=== PATIENT | male | born 1970 | race African-American/Black ===

== ENCOUNTER 2016-05-30 14:30 | Emergency (ER) | payer MEDICAID ==
[~2016-05-30] VITALS: Ht 185.4 cm; Wt 87.1 kg
[~2016-05-30 14:30] MED LIST: ALB2T; AMLO10TA2 PO; ATEN50TA PO; ENAL20TA70 PO; FLUT100M7; LEVE500T22; PHEN-250; RABE20TA5 PO; TRIA25CA PO
[2016-05-30] MEDS ORDERED: SODIUM CHLORIDE 0.9% 1,000 ML IV ONE (15:11)
[2016-05-30] MEDS ORDERED: DEXAMETHASONE SOD PHOS 4 MG/1ML SDV INJ IV ONE (15:15)
[2016-05-30] MEDS ORDERED: METOCLOPRAMIDE HCL 5MG/ml INJ 2ml VIAL IV ONE (15:15)
[2016-05-30] MEDS ORDERED: KETOROLAC TROMETH 30 MG/ML 1ML VIAL IV ONE (15:15)
[2016-05-30 15:47] LABS: DEFINITIVE VIEW TRANSMISSION; Hematocrit 41.8 % (41.0-53.0); Mean Corpuscular Hgb Conc. 31.1 g/dL (32.0-36.0); Mean Corpuscular Volume 77.1 fL (80.0-100.0); Mean Platelet Volume 10.6 fL (7.4-10.4); Platelet Count (auto) 177 10^3/uL (140-450); Red Cell Distribution Width 17.1 % (11.6-16.0); SUSPECT VIEW TRANSMISSION; White Blood Cell 4.4 10^3/uL (4.4-10.8)
[2016-05-30 15:51] LABS: Metamyelocytes % 0; Myelocytes % 0; Promyelocytes % 0; Reactive Lymphocytes 0
[2016-05-30 15:55] LABS: BUN/Creatinine Ratio 13.2; Calcium 8.9 mg/dL (8.5-10.1); Magnesium 1.7 mg/dL (1.6-2.6); Potassium 3.5 mmol/L (3.5-5.1)
[2016-05-30 16:50] VITALS: BP 133/91
[2016-05-30 17:54] LABS: Giant Platelets Few; Hypochromia Slight; Large Platelets FEW; Platelet Estimate Adequa
== END 2016-05-30 17:49 | disposition home or self-care (01) ==
LOC: ER 14:39
DX: M10.9 Gout, unspecified (principal); M25.522 Pain in left elbow; M25.532 Pain in left wrist; J45.909 Unspecified asthma, uncomplicated; K21.9 Gastro-esophageal reflux disease without esophagitis
CPT/HCPCS: 29105; 36415; 80048; 83735; 84443; 85007; 85027; 96361; 96374; 96375; 99285; J1100; J1885; J2765; J7030

== ENCOUNTER 2016-10-09 11:26 | Emergency (ER) | payer MEDICAID ==
[~2016-10-09] VITALS: Ht 185.4 cm; Wt 86.6 kg
[2016-10-09 11:39] VITALS: BP 171/127
[2016-10-09] MEDS ORDERED: KETOROLAC TROMETH 60MG/2ML VIAL IM ONE (14:15)
== END 2016-10-09 14:19 | disposition home or self-care (01) ==
LOC: ER 11:28
DX: M25.561 Pain in right knee (principal); M10.9 Gout, unspecified; Z76.0 Encounter for issue of repeat prescription; J45.909 Unspecified asthma, uncomplicated; K21.9 Gastro-esophageal reflux disease without esophagitis; I10 Essential (primary) hypertension
CPT/HCPCS: 96372; 99283; J1885

== ENCOUNTER 2016-12-21 12:56 | Emergency (ER) | payer MEDICAID ==
[~2016-12-21] VITALS: Ht 185.4 cm; Wt 83.5 kg
[2016-12-21 13:14] VITALS: BP 135/104
[2016-12-21] MEDS ORDERED: COLCHICINE 0.6 MG CAP ONE (15:23)
[2016-12-21] MEDS ORDERED: KETOROLAC TROMETH 60MG/2ML VIAL IM ONE (15:30)
[2016-12-21] MEDS ORDERED: COLCHICINE 0.6 MG CAP PO ONE (15:30)
== END 2016-12-21 15:47 | disposition home or self-care (01) ==
LOC: ER 12:56
DX: M10.9 Gout, unspecified (principal); J45.909 Unspecified asthma, uncomplicated; M54.2 Cervicalgia; K21.9 Gastro-esophageal reflux disease without esophagitis; I10 Essential (primary) hypertension; Z79.899 Other long term (current) drug therapy
CPT/HCPCS: 96372; 99283; J1885

== ENCOUNTER 2017-01-13 10:55 | Emergency (ER) | payer MEDICAID ==
[~2017-01-13] VITALS: Ht 185.4 cm; Wt 83.9 kg
[2017-01-13 12:13] LABS: CONDITION Y; DEFINITIVE SEE PRINTOUT; Hemoglobin 13.7 g/dL (13.5-17.5); Mean Corpuscular Hemoglobin 26.2 pg (28.0-32.0); Mean Corpuscular Hgb Conc. 32.7 g/dL (32.0-36.0); Mean Corpuscular Volume 80.2 fL (80.0-100.0); Mean Platelet Volume 10.5 fL (7.4-10.4); Platelet Count (auto) 139 10^3/uL (140-450); Red Cell Distribution Width 18.5 % (11.6-16.0); SUSPECT SEE PRINTOUT; White Blood Cell 6.9 10^3/uL (4.4-10.8)
[2017-01-13 12:33] LABS: Albumin 3.9 g/dL (3.4-5.0); BUN/Creatinine Ratio 11.7; Calcium 9.8 mg/dL (8.5-10.1); Uric Acid 8.9 mg/dL (3.5-7.2)
[2017-01-13 12:43] LABS: Metamyelocytes % 0; Myelocytes % 0; Promyelocytes % 0; Reactive Lymphocytes 0
[2017-01-13 12:53] VITALS: BP 133/98
[2017-01-13 13:04] LABS: Giant Platelets Few; Hypochromia Slight
[2017-01-13 13:05] LABS: Large Platelets FEW; Platelet Estimate Decrea
[2017-01-13] MEDS ORDERED: KETOROLAC TROMETH 60MG/2ML VIAL IM ONE (13:45)
[2017-01-13] MEDS ORDERED: methylPREDNISolone SOD SUCC 125 MG/2 ML VL IM ONE (13:45)
== END 2017-01-13 14:05 | disposition home or self-care (01) ==
LOC: ER 10:55
DX: M10.9 Gout, unspecified (principal); J45.909 Unspecified asthma, uncomplicated; K21.9 Gastro-esophageal reflux disease without esophagitis; I10 Essential (primary) hypertension; Z79.899 Other long term (current) drug therapy
CPT/HCPCS: 36415; 80053; 84550; 85007; 85027; 96372; 99284; J1885; J2930

== ENCOUNTER 2017-08-07 10:01 | Emergency (ER) | payer MEDICAID ==
[~2017-08-07] VITALS: Ht 185.4 cm; Wt 85.7 kg
[2017-08-07 10:08] VITALS: BP 138/89
[2017-08-07] MEDS ORDERED: KETOROLAC TROMETH 60MG/2ML VIAL IM ONE (10:45)
== END 2017-08-07 11:54 | disposition home or self-care (01) ==
LOC: ER 10:01
DX: M10.9 Gout, unspecified (principal); I10 Essential (primary) hypertension; J45.909 Unspecified asthma, uncomplicated; K21.9 Gastro-esophageal reflux disease without esophagitis; M25.561 Pain in right knee; F10.10 Alcohol abuse, uncomplicated
CPT/HCPCS: 96372; 99283; J1885

== ENCOUNTER 2017-08-27 15:03 | Emergency (ER) | payer MEDICAID ==
[~2017-08-27] VITALS: Ht 185.4 cm; Wt 83.9 kg
[2017-08-27 17:00] VITALS: BP 109/70
[2017-08-27] MEDS ORDERED: methylPREDNISolone SOD SUCC 125 MG/2 ML VL IM ONE (17:30)
[2017-08-27] MEDS ORDERED: KETOROLAC TROMETH 60MG/2ML VIAL IM ONE (17:30)
== END 2017-08-27 18:15 | disposition home or self-care (01) ==
LOC: ER 15:21
DX: M10.9 Gout, unspecified (principal); J45.909 Unspecified asthma, uncomplicated; K21.9 Gastro-esophageal reflux disease without esophagitis; I10 Essential (primary) hypertension
CPT/HCPCS: 96372; 99284; J1885; J2930

== ENCOUNTER 2017-11-20 18:10 | Emergency (ER) | payer MEDICAID ==
[~2017-11-20] VITALS: Ht 185.4 cm; Wt 88.5 kg
[2017-11-20 18:21] VITALS: BP 114/77
[2017-11-20] MEDS ORDERED: KETOROLAC TROMETH 60MG/2ML VIAL IM ONE (20:15)
== END 2017-11-20 21:12 | disposition home or self-care (01) ==
LOC: ER 18:10
DX: M25.522 Pain in left elbow (principal); M10.9 Gout, unspecified; K21.9 Gastro-esophageal reflux disease without esophagitis; I10 Essential (primary) hypertension; J45.909 Unspecified asthma, uncomplicated; Z79.899 Other long term (current) drug therapy
CPT/HCPCS: 96372; 99283; J1885

== ENCOUNTER 2017-11-22 19:13 | Emergency (ER) | payer MEDICAID ==
[~2017-11-22] VITALS: Ht 185.4 cm; Wt 81.6 kg
[2017-11-22 20:04] LABS: Basophils # (auto) 0 uL; Basophils % (auto) 0.5 % (0.0-2.0); Eosinophils # (auto) 0 uL; Hemoglobin 12.6 g/dL (13.5-17.5); Neutrophils # (auto) 3.2 uL
[2017-11-22 20:09] LABS: Eosinophils % (auto) 0.4 % (0.0-7.0); Hematocrit 38.3 % (41.0-53.0); Lymphocytes # (auto) 0.8 uL; Lymphocytes % (auto) 17.7 % (10.0-50.0); Mean Corpuscular Hemoglobin 24.8 pg (28.0-32.0); Mean Corpuscular Hgb Conc. 32.8 g/dL (32.0-36.0); Mean Corpuscular Volume 75.7 fL (80.0-100.0); Monocytes # (auto) 0.4 uL; Monocytes % (auto) 9.8 % (0.0-12.0); Neutrophils % (auto) 71.6 % (37.0-80.0); Nucleated Red Blood Cells % 0.6 %; Platelet Count (auto) 168 10^3/uL (140-450); Red Blood Cells 5.05 10^6/uL (4.5-5.90); Red Cell Distribution Width 17.5 % (11.8-14.3); White Blood Cell 4.5 10^3/uL (4.4-10.8)
[2017-11-22 20:10] VITALS: BP 141/52
[2017-11-22] MEDS ORDERED: LEVETIRACETAM INJ 500 MG in D5W 5% 100 ML IV ONE (20:15)
[2017-11-22 20:37] LABS: Albumin 3.7 g/dL (3.4-5.0); BUN/Creatinine Ratio 19.4; Bilirubin, Total 0.3 mg/dL (0.2-1.0); Calcium 8.6 mg/dL (8.5-10.1); Magnesium 2.3 mg/dL (1.6-2.6); Potassium 3.4 mmol/L (3.5-5.1); Total Protein 8.7 g/dL (6.4-8.2)
[2017-11-22 20:44] LABS: Blood Alcohol 319.7 mg/dL (0-5)
[2017-11-22] MEDS ORDERED: INDOMETHACIN 25 MG CAP PO ONE (21:15)
== END 2017-11-22 22:13 | disposition home or self-care (01) ==
LOC: EDBD 19:13 → ER 19:19
DX: R56.9 Unspecified convulsions (principal); F10.129 Alcohol abuse with intoxication, unspecified; J45.909 Unspecified asthma, uncomplicated; K21.9 Gastro-esophageal reflux disease without esophagitis; M10.9 Gout, unspecified; E78.5 Hyperlipidemia, unspecified; I10 Essential (primary) hypertension; Z79.899 Other long term (current) drug therapy
CPT/HCPCS: 36415; 70450; 80053; 80164; 80320; 83735; 84550; 85025; 94761; 96365; 99285; J1953; J7060

== ENCOUNTER 2017-12-28 13:04 | Emergency (ER) | payer MEDICAID ==
[~2017-12-28] VITALS: Ht 185.4 cm; Wt 83.9 kg
[2017-12-28 14:13] LABS: Lymphocytes # (auto) 1.1 uL; Monocytes # (auto) 0.6 uL; Neutrophils # (auto) 2.1 uL; Red Blood Cells 5.01 10^6/uL (4.5-5.90); White Blood Cell 3.9 10^3/uL (4.4-10.8)
[2017-12-28 14:15] LABS: Basophils # (auto) 0 uL; Basophils % (auto) 0.9 % (0.0-2.0); Eosinophils # (auto) 0.1 uL; Eosinophils % (auto) 1.5 % (0.0-7.0); Hemoglobin 12.8 g/dL (13.5-17.5); Lymphocytes % (auto) 28.2 % (10.0-50.0); Mean Corpuscular Hemoglobin 25.6 pg (28.0-32.0); Mean Corpuscular Hgb Conc. 32.8 g/dL (32.0-36.0); Monocytes % (auto) 16.2 % (0.0-12.0); Neutrophils % (auto) 53.2 % (37.0-80.0); Nucleated Red Blood Cells % 0.5 %; Platelet Count (auto) 140 10^3/uL (140-450); Red Cell Distribution Width 17.2 % (11.8-14.3)
[2017-12-28 14:26] LABS: Albumin 3.8 g/dL (3.4-5.0); BUN/Creatinine Ratio 16.8; Calcium 8.7 mg/dL (8.5-10.1); Potassium 3.7 mmol/L (3.5-5.1)
[2017-12-28 14:29] LABS: Bilirubin, Total 0.6 mg/dL (0.2-1.0); Total Protein 7.8 g/dL (6.4-8.2)
[2017-12-28 15:15] LABS: Urine Bacteria NONE SEEN /hpf (None Seen); Urine Blood 1+ /uL (Negative); Urine Mucus FEW (None Seen); Urine Specific Gravity 1.026 (1.001-1.035); Urine WBC 2 /hpf (0 - 3)
[2017-12-28 15:33] LABS: Alcohol, Urine < 3.0 mg/dL (0-5); Amphetamine Screen, Urine NEGATIVE (NEGATIVE); Barbiturate Scree,Urine NEGATIVE (NEGATIVE); Benzodiazephine Screen, Urine NEGATIVE (NEGATIVE); Cannabinoid Screen, Urine POSITIVE (NEGATIVE); Cocaine Screen, Urine NEGATIVE (NEGATIVE); Opiate Scree,Urine NEGATIVE (NEGATIVE); Phencyclidine Screen, Urine NEGATIVE (NEGATIVE)
[2017-12-28] MEDS ORDERED: LEVETIRACETAM 500 MG TAB PO ONE (15:45)
[2017-12-28 18:16] VITALS: BP 121/88
== END 2017-12-28 18:18 | disposition home or self-care (01) ==
LOC: ER 13:04
DX: G40.909 Epilepsy, unspecified, not intractable, without status epilepticus (principal); M54.9 Dorsalgia, unspecified; G89.29 Other chronic pain; F12.10 Cannabis abuse, uncomplicated; R74.8 Abnormal levels of other serum enzymes; J45.909 Unspecified asthma, uncomplicated; K21.9 Gastro-esophageal reflux disease without esophagitis; E78.5 Hyperlipidemia, unspecified; I10 Essential (primary) hypertension; E07.9 Disorder of thyroid, unspecified; M10.9 Gout, unspecified
CPT/HCPCS: 36415; 70450; 80053; 80164; 80185; 80307; 81001; 83036; 85025; 93005

== ENCOUNTER 2018-01-27 15:38 | Emergency (ER) | payer MEDICAID ==
[~2018-01-27] VITALS: Ht 185.4 cm; Wt 86.2 kg
[~2018-01-27 15:38] MED LIST changes: +AMLO10TA12 PO; -AMLO10TA2 PO
[2018-01-27 16:38] VITALS: BP 126/82
[2018-01-27] MEDS ORDERED: methylPREDNISolone SOD SUCC 125 MG/2 ML VL IM ONE (17:00)
[2018-01-27] MEDS ORDERED: KETOROLAC TROMETH 60MG/2ML VIAL IM ONE (17:00)
== END 2018-01-27 17:42 | disposition home or self-care (01) ==
LOC: ER 15:44
DX: M10.9 Gout, unspecified (principal); K21.9 Gastro-esophageal reflux disease without esophagitis; J45.909 Unspecified asthma, uncomplicated; E78.5 Hyperlipidemia, unspecified; I10 Essential (primary) hypertension
CPT/HCPCS: 96372; 99284; J1885; J2930

== ENCOUNTER 2018-04-08 23:48 | Inpatient (IN) | payer MEDICAID ==
[~2018-04-08] VITALS: Ht 185.4 cm; Wt 95.2 kg
[2018-04-09] MEDS ORDERED: MORPHINE SULFATE 4 MG/ML SYR/VIAL IV ONE (04:45)
[2018-04-09] MEDS ORDERED: SODIUM CHLORIDE 0.9% 1,000 ML IV ONE ×2 (04:45→09:45)
[2018-04-09] MEDS ORDERED: ONDANSETRON HCL 4 MG/2 ML VIAL IV ONE (04:45)
[2018-04-09 05:42] LABS: Lymphocytes # (auto) 1.3 uL; Mean Corpuscular Hemoglobin 24.6 pg (28.0-32.0)
[2018-04-09 05:44] LABS: Basophils # (auto) 0.1 uL; Basophils % (auto) 0.9 % (0.0-2.0); Eosinophils # (auto) 0 uL; Eosinophils % (auto) 0.6 % (0.0-7.0); Hematocrit 50.2 % (41.0-53.0); Hemoglobin 16.4 g/dL (13.5-17.5); Mean Corpuscular Hgb Conc. 32.7 g/dL (32.0-36.0); Mean Corpuscular Volume 75.2 fL (80.0-100.0); Monocytes # (auto) 0.9 uL; Monocytes % (auto) 10.2 % (0.0-12.0); Neutrophils # (auto) 6.4 uL; Neutrophils % (auto) 73.3 % (37.0-80.0); Nucleated Red Blood Cells % 0.3 %; Red Blood Cells 6.67 10^6/uL (4.5-5.90); Red Cell Distribution Width 16.3 % (11.8-14.3); White Blood Cell 8.7 10^3/uL (4.4-10.8)
[2018-04-09] MEDS ORDERED: cloNIDine HCL 0.1 MG TAB PO ONE (05:45)
[2018-04-09 05:53] LABS: Platelet Count (auto) 155 10^3/uL (140-450)
[2018-04-09 05:56] LABS: INR 0.94 (0.9-1.15); Partial Thromboplastin Time 29.4 sec (23.78-33.04); Prothrombin Time 10.1 sec (9.27-12.13)
[2018-04-09 05:58] LABS: Albumin 4.1 g/dL (3.4-5.0); Calcium 9.2 mg/dL (8.5-10.1); Magnesium 1.9 mg/dL (1.6-2.6); Potassium 3.9 mmol/L (3.5-5.1)
[2018-04-09 06:02] LABS: BUN/Creatinine Ratio 12.1; Bilirubin, Total 1.3 mg/dL (0.2-1.0); Total Protein 9.2 g/dL (6.4-8.2)
[2018-04-09] MEDS ORDERED: SODIUM CHLORIDE 0.9% 1,000 ML IVB ONE (07:32)
[2018-04-09] MEDS ORDERED: MORPHINE SULFATE 4 MG/ML SYR/VIAL IV PRN ×3 (07:45→10:00)
[2018-04-09] MEDS ORDERED: PROMETHAZINE HCL 25 MG/ML 1ML IV PRN (07:45)
[2018-04-09 08:24] LABS: Urine Bacteria NONE SEEN /hpf (None Seen); Urine Blood Negative /uL (Negative); Urine Hyaline Cast FEW /lpf (0 - 2); Urine Mucus FEW (None Seen); Urine Specific Gravity 1.025 (1.001-1.035); Urine WBC 1 /hpf (0 - 3)
[2018-04-09] MEDS ORDERED: LORazepam 2MG/ML-1ML VIAL IV PRN (09:45)
[2018-04-09] MEDS ORDERED: ACETAMINOPHEN 325 MG TAB PO PRN (10:00)
[2018-04-09] MEDS ORDERED: PANTOPRAZOLE 40 MG TAB PO SCH (10:00)
[2018-04-09] MEDS ORDERED: amLODIPine BESYLATE 5 MG TAB PO SCH (10:00)
[2018-04-09] MEDS ORDERED: NITROGLYCERIN 0.4 MG SL TAB SL PRN (10:00)
[2018-04-09] MEDS ORDERED: TRIAMTERENE/HCTZ 37.5/25 MG CAP/TAB PO SCH (10:00)
[2018-04-09] MEDS ORDERED: ONDANSETRON HCL 4 MG/2 ML VIAL IV PRN (10:00)
[2018-04-09] MEDS ORDERED: DOCUSATE SOD 100 MG CAP PO PRN (10:00)
[2018-04-09] MEDS ORDERED: LEVOTHYROXINE SODIUM 50 MCG TAB PO ONE (10:00)
[2018-04-09] MEDS ORDERED: MULTIPLE VITAMIN TAB PO SCH (10:00)
[2018-04-09] MEDS ORDERED: TEMAZEPAM 15 MG CAP PO PRN (10:00)
[2018-04-09 10:24] LABS: Alcohol, Urine < 3.0 mg/dL (0-5); Amphetamine Screen, Urine NEGATIVE (NEGATIVE); Barbiturate Scree,Urine NEGATIVE (NEGATIVE); Benzodiazephine Screen, Urine NEGATIVE (NEGATIVE); Cannabinoid Screen, Urine POSITIVE (NEGATIVE); Cocaine Screen, Urine NEGATIVE (NEGATIVE); Opiate Scree,Urine NEGATIVE (NEGATIVE); Phencyclidine Screen, Urine NEGATIVE (NEGATIVE)
[2018-04-09] MEDS: LEVETIRACETAM 500 MG TAB PO SCH ×2 (10:44→21:18)
[2018-04-09] MEDS: FAMOTIDINE 20 MG TAB PO SCH ×2 (10:45→21:18)
[2018-04-09] MEDS: ATENOLOL 25 MG TAB PO SCH ×2 (10:48→21:18)
[2018-04-09] MEDS: ENALAPRIL MALEATE 10 MG TAB PO SCH ×2 (10:49→21:19)
[2018-04-09] MEDS: ALBUTEROL SULF 2.5 MG/0.5ML(0.5%) NEB SOLN NEB SCH ×3 (11:27→23:40)
[2018-04-09] MEDS: SODIUM CHLORIDE 0.9% 1,000 ML IV SCH ×2 (12:00→18:35)
[2018-04-09] MEDS ORDERED: cloNIDine HCL 0.1 MG TAB PO PRN (12:45)
[2018-04-09 14:11] VITALS: BP 121/95
[2018-04-09 17:13] VITALS: BP 98/63
[2018-04-09] MEDS: BUDESONIDE (INHALATION) 0.5 MG/2 ML NEB NEB SCH (18:09)
[2018-04-09 22:00] VITALS: BP 90/71
[2018-04-09] MEDS: HYDROcodone-ACET 5/325MG TAB PO PRN (22:50)
[2018-04-09 23:07] VITALS: BP 90/71
[2018-04-10] MEDS: SODIUM CHLORIDE 0.9% 1,000 ML IV SCH ×2 (02:32→03:43)
[2018-04-10 04:53] VITALS: BP 102/67
[2018-04-10 05:21] LABS: Basophils # (auto) 0 uL; Eosinophils # (auto) 0.1 uL; Hemoglobin 12.9 g/dL (13.5-17.5); Lymphocytes # (auto) 0.8 uL; Monocytes # (auto) 0.6 uL
[2018-04-10 05:23] LABS: Basophils % (auto) 0.6 % (0.0-2.0); Eosinophils % (auto) 2.4 % (0.0-7.0); Lymphocytes % (auto) 17.5 % (10.0-50.0); Mean Corpuscular Hemoglobin 24.6 pg (28.0-32.0); Mean Corpuscular Hgb Conc. 32.1 g/dL (32.0-36.0); Mean Corpuscular Volume 76.6 fL (80.0-100.0); Monocytes % (auto) 12.7 % (0.0-12.0); Neutrophils # (auto) 3.2 uL; Neutrophils % (auto) 66.8 % (37.0-80.0); Nucleated Red Blood Cells % 0.2 %; Red Blood Cells 5.22 10^6/uL (4.5-5.90); Red Cell Distribution Width 16.6 % (11.8-14.3); White Blood Cell 4.8 10^3/uL (4.4-10.8)
[2018-04-10 05:43] LABS: Albumin 2.8 g/dL (3.4-5.0); BUN/Creatinine Ratio 9.9; Calcium 7.4 mg/dL (8.5-10.1); Potassium 3.1 mmol/L (3.5-5.1)
[2018-04-10 05:45] LABS: Total Protein 6.5 g/dL (6.4-8.2)
[2018-04-10 06:18] LABS: Platelet Count (auto) 105 10^3/uL (140-450)
[2018-04-10] MEDS: ALBUTEROL SULF 2.5 MG/0.5ML(0.5%) NEB SOLN NEB SCH (06:29)
[2018-04-10] MEDS: BUDESONIDE (INHALATION) 0.5 MG/2 ML NEB NEB SCH (06:29)
[2018-04-10 06:57] LABS: Amylase 73 U/L (25-115); Lipase 195 U/L (73-393)
[2018-04-10] MEDS ORDERED: LEVOTHYROXINE SODIUM 50 MCG TAB PO SCH (07:00)
[2018-04-10] MEDS: HYDROcodone-ACET 5/325MG TAB PO PRN (08:06)
[2018-04-10 08:53] VITALS: BP 108/60
== END 2018-04-10 08:20 | disposition left against medical advice (07) | DRG 282 ==
LOC: ER 23:51 → TELE 04-09 09:55 → TELE-WESTW 04-09 11:15
PROVIDERS: ADMIT Internal Medicine; ATTEND Internal Medicine
DX: K85.90 Acute pancreatitis without necrosis or infection, unspecified (principal); E87.2 Acidosis; E87.1 Hypo-osmolality and hyponatremia; E61.1 Iron deficiency; E86.0 Dehydration; M10.9 Gout, unspecified; J98.11 Atelectasis; J45.909 Unspecified asthma, uncomplicated; G40.909 Epilepsy, unspecified, not intractable, without status epilepticus; K21.9 Gastro-esophageal reflux disease without esophagitis; N18.2 Chronic kidney disease, stage 2 (mild); E78.5 Hyperlipidemia, unspecified; E03.9 Hypothyroidism, unspecified; I12.9 Hypertensive chronic kidney disease with stage 1 through stage 4 chronic kidney disease, or unspecified chronic kidney disease; K44.9 Diaphragmatic hernia without obstruction or gangrene; Z83.3 Family history of diabetes mellitus; E80.6 Other disorders of bilirubin metabolism; R16.0 Hepatomegaly, not elsewhere classified; Z53.21 Procedure and treatment not carried out due to patient leaving prior to being seen by health care provider
CPT/HCPCS: 36415; 71046; 74176; 80053; 80307; 81001; 82150; 83540; 83690; 83735; 84443; 85025; 85610; 85730; 93005; 93306; 94640; 94761; 96361; 96374; 96375; G0378; J2405

== ENCOUNTER 2018-04-10 13:57 | Emergency (ER) | payer MEDICAID ==
[~2018-04-10] VITALS: Ht 185.4 cm; Wt 88.5 kg
[2018-04-10] MEDS ORDERED: PANTOPRAZOLE 40 MG/10 ML VIAL IV STA (14:55)
[2018-04-10 15:29] LABS: Basophils # (auto) 0 uL; Eosinophils # (auto) 0.1 uL; Hemoglobin 12.9 g/dL (13.5-17.5); Monocytes # (auto) 0.6 uL; Neutrophils # (auto) 3.5 uL; Nucleated Red Blood Cells % 0.1 %
[2018-04-10 15:31] LABS: Basophils % (auto) 0.6 % (0.0-2.0); Eosinophils % (auto) 2.1 % (0.0-7.0); Lymphocytes # (auto) 0.8 uL; Lymphocytes % (auto) 15.4 % (10.0-50.0); Mean Corpuscular Hemoglobin 24.7 pg (28.0-32.0); Mean Corpuscular Hgb Conc. 32.3 g/dL (32.0-36.0); Mean Corpuscular Volume 76.5 fL (80.0-100.0); Monocytes % (auto) 12.4 % (0.0-12.0); Neutrophils % (auto) 69.5 % (37.0-80.0); Platelet Count (auto) 152 10^3/uL (140-450); Red Blood Cells 5.23 10^6/uL (4.5-5.90); White Blood Cell 5.1 10^3/uL (4.4-10.8)
[2018-04-10 15:52] LABS: Amylase 70 U/L (25-115); Anion Gap 7 (5-15); Blood Urea Nitrogen 13 mg/dL (7-18); Calcium 7.9 mg/dL (8.5-10.1); Carbon Dioxide 22 mmol/L (21-32); Chloride 107 mmol/L (98-107); Glucose 73 mg/dL (74-106); Lipase 158 U/L (73-393); Potassium 5.1 mmol/L (3.5-5.1); Sodium 136 mmol/L (136-145)
[2018-04-10 15:55] LABS: Alanine Aminotransferase 35 U/L (16-61); Alkaline Phosphatase 59 U/L (45-117); Aspartate Aminotransferase 72 U/L (15-37); BUN/Creatinine Ratio 9.4; GFR African American 71 mL/min; GFR Non-African American 58 mL/min; Total Protein 7.4 g/dL (6.4-8.2)
[2018-04-10 16:20] LABS: Blood Alcohol < 3.0 mg/dL (0-5)
[2018-04-10 17:02] VITALS: BP 124/78
== END 2018-04-10 17:23 | disposition home or self-care (01) ==
LOC: ER 14:02
DX: R10.13 Epigastric pain (principal); E78.5 Hyperlipidemia, unspecified; R11.2 Nausea with vomiting, unspecified; I10 Essential (primary) hypertension; J45.909 Unspecified asthma, uncomplicated; F12.10 Cannabis abuse, uncomplicated; F10.10 Alcohol abuse, uncomplicated; M10.9 Gout, unspecified; Z79.899 Other long term (current) drug therapy
CPT/HCPCS: 36415; 80053; 80320; 82150; 83690; 85025; 94761; 96374; 99283; C9113

== ENCOUNTER 2018-07-16 16:04 | Emergency (ER) | payer MEDICAID ==
[~2018-07-16] VITALS: Ht 185.4 cm; Wt 86.2 kg
[2018-07-16 16:41] VITALS: BP 154/98
[2018-07-16] MEDS ORDERED: methylPREDNISolone SOD SUCC 125 MG/2 ML VL IM ONE (19:00)
[2018-07-16] MEDS ORDERED: KETOROLAC TROMETH 60MG/2ML VIAL IM ONE (19:00)
== END 2018-07-16 19:43 | disposition home or self-care (01) ==
LOC: ER 16:04
DX: M10.062 Idiopathic gout, left knee (principal); M25.462 Effusion, left knee; K21.9 Gastro-esophageal reflux disease without esophagitis; E78.5 Hyperlipidemia, unspecified; I10 Essential (primary) hypertension; J45.909 Unspecified asthma, uncomplicated; F17.210 Nicotine dependence, cigarettes, uncomplicated; Z86.39 Personal history of other endocrine, nutritional and metabolic disease
CPT/HCPCS: 73562; 96372; 99283; J1885; J2930

== ENCOUNTER 2018-07-18 15:25 | Emergency (ER) | payer MEDICAID ==
[~2018-07-18] VITALS: Ht 185.4 cm; Wt 88.5 kg
[2018-07-18 16:00] VITALS: BP 132/88
[2018-07-18] MEDS ORDERED: HYDROmorphone HCL 2 MG/ML VL IM ONE (17:00)
[2018-07-18] MEDS ORDERED: methylPREDNISolone SOD SUCC 125 MG/2 ML VL IM ONE (21:00)
[2018-07-18] MEDS ORDERED: KETOROLAC TROMETH 60MG/2ML VIAL IM ONE (21:00)
== END 2018-07-18 21:41 | disposition home or self-care (01) ==
LOC: ER 15:25
DX: M10.9 Gout, unspecified (principal); J45.909 Unspecified asthma, uncomplicated; K21.9 Gastro-esophageal reflux disease without esophagitis; E78.5 Hyperlipidemia, unspecified; I10 Essential (primary) hypertension; F12.10 Cannabis abuse, uncomplicated; Z86.39 Personal history of other endocrine, nutritional and metabolic disease
CPT/HCPCS: 96372; 99283; J1885; J2930

== ENCOUNTER 2018-08-28 14:32 | Emergency (ER) | payer MEDICAID ==
[~2018-08-28] VITALS: Ht 185.4 cm; Wt 89.8 kg
[2018-08-28] MEDS ORDERED: DONNATAL 5ml ORAL Elix (BELLADONNA ALK-PHENOBARB) PO ONE (15:30)
[2018-08-28] MEDS ORDERED: ALUM & MAG HYDROX-SIMETH LIQ(MAALOX) 30 ML PO ONE (15:30)
[2018-08-28] MEDS ORDERED: LIDOCAINE VISCOUS 2% 15ML UD PO ONE (15:30)
[2018-08-28 15:39] LABS: Basophils # (auto) 0 uL; Eosinophils # (auto) 0.1 uL; Eosinophils % (auto) 0.8 % (0.0-7.0); Hemoglobin 15.6 g/dL (13.5-17.5); Lymphocytes # (auto) 1.6 uL; Lymphocytes % (auto) 24.3 % (10.0-50.0); Red Cell Distribution Width 16.6 % (11.8-14.3); White Blood Cell 6.7 10^3/uL (4.4-10.8)
[2018-08-28 15:40] LABS: Basophils % (auto) 0.4 % (0.0-2.0); Hematocrit 47.7 % (41.0-53.0); Mean Corpuscular Hemoglobin 24.6 pg (28.0-32.0); Mean Corpuscular Hgb Conc. 32.6 g/dL (32.0-36.0); Mean Corpuscular Volume 75.3 fL (80.0-100.0); Monocytes % (auto) 14.5 % (0.0-12.0); Nucleated Red Blood Cells % 0.5 %; Platelet Count (auto) 140 10^3/uL (140-450); Red Blood Cells 6.33 10^6/uL (4.5-5.90)
[2018-08-28 15:48] LABS: Calcium 9.6 mg/dL (8.5-10.1); Potassium 3.3 mmol/L (3.5-5.1)
[2018-08-28 15:51] LABS: BUN/Creatinine Ratio 11.7
[2018-08-28 15:53] LABS: Bilirubin, Total 0.7 mg/dL (0.2-1.0); Total Protein 8.8 g/dL (6.4-8.2)
[2018-08-28 17:36] LABS: Urine Bacteria NONE SEEN /hpf (None Seen); Urine Blood Negative /uL (Negative); Urine Specific Gravity 1.024 (1.001-1.035); Urine WBC 1 /hpf (0 - 3)
[2018-08-28] MEDS ORDERED: SODIUM CHLORIDE 0.9% 500 ML IV ONE (19:40)
[2018-08-28] MEDS ORDERED: POTASSIUM CHL 10 Meq TABLET PO ONE (19:45)
[2018-08-28 20:45] VITALS: BP 131/77
== END 2018-08-28 20:11 | disposition home or self-care (01) ==
LOC: ER 14:37
DX: N28.9 Disorder of kidney and ureter, unspecified (principal); S46.911A Strain of unspecified muscle, fascia and tendon at shoulder and upper arm level, right arm, initial encounter; J45.909 Unspecified asthma, uncomplicated; K21.9 Gastro-esophageal reflux disease without esophagitis; E78.5 Hyperlipidemia, unspecified; I10 Essential (primary) hypertension; F12.10 Cannabis abuse, uncomplicated; Z79.899 Other long term (current) drug therapy; Z86.39 Personal history of other endocrine, nutritional and metabolic disease; X58.XXXA Exposure to other specified factors, initial encounter; Y93.89 Activity, other specified; Y92.89 Other specified places as the place of occurrence of the external cause; Y99.8 Other external cause status
CPT/HCPCS: 36415; 73080; 74176; 80053; 81001; 82150; 83690; 85025; 99284; J7030

== ENCOUNTER 2019-03-15 12:17 | Emergency (ER) | payer MEDICAID ==
[~2019-03-15] VITALS: Ht 185.4 cm; Wt 83.9 kg
[~2019-03-15 12:17] MED LIST changes: -AMLO10TA12 PO; +AMLO10TA13 PO; +ENAL20TA PO; -ENAL20TA70 PO
[2019-03-15 12:28] VITALS: BP 114/78
[2019-03-15] MEDS ORDERED: IBUPROFEN 800 MG TAB PO ONE (14:00)
== END 2019-03-15 14:02 | disposition home or self-care (01) ==
LOC: ER 12:17
DX: S62.306A Unspecified fracture of fifth metacarpal bone, right hand, initial encounter for closed fracture (principal); J45.909 Unspecified asthma, uncomplicated; K21.9 Gastro-esophageal reflux disease without esophagitis; E78.5 Hyperlipidemia, unspecified; I10 Essential (primary) hypertension; F12.10 Cannabis abuse, uncomplicated; Z86.39 Personal history of other endocrine, nutritional and metabolic disease; Z79.899 Other long term (current) drug therapy; W26.8XXA Contact with other sharp object(s), not elsewhere classified, initial encounter; Y93.89 Activity, other specified; Y92.89 Other specified places as the place of occurrence of the external cause; Y99.8 Other external cause status
CPT/HCPCS: 73130

== ENCOUNTER 2019-08-18 11:42 | Inpatient (IN) | payer MEDICAID ==
[~2019-08-18] VITALS: Ht 185.4 cm; Wt 86.3 kg
[2019-08-18] MEDS ORDERED: SODIUM CHLORIDE 0.9% 1,000 ML IVB ONE (12:14)
[2019-08-18] MEDS ORDERED: ONDANSETRON HCL 4 MG/2 ML VIAL IV ONE (12:15)
[2019-08-18 12:39] LABS: Urine Bacteria NONE SEEN /hpf (None Seen); Urine Blood Negative /uL (Negative); Urine Specific Gravity 1.023 (1.001-1.035); Urine WBC 3 /hpf (0 - 3)
[2019-08-18] MEDS ORDERED: MORPHINE SULF INJ 2 MG/ML SYRINGE 1ML IV ONE (13:00)
[2019-08-18 13:10] LABS: Basophils # (auto) 0 10 ^3/uL (0-0.2); Eosinophils # (auto) 0 10 ^3/uL (0-0.8); Hemoglobin 13.6 g/dL (13.5-17.5); Monocytes # (auto) 0.5 10 ^3/uL (0-1.3); Nucleated Red Blood Cells % 0.4 %; White Blood Cell 5.8 10^3/uL (4.4-10.8)
[2019-08-18 13:12] LABS: Basophils % (auto) 0.3 % (0.0-2.0); Hematocrit 43.1 % (41.0-53.0); Lymphocytes % (auto) 16.9 % (10.0-50.0); Mean Corpuscular Hemoglobin 24.9 pg (28.0-32.0); Mean Corpuscular Hgb Conc. 31.7 g/dL (32.0-36.0); Mean Corpuscular Volume 78.7 fL (80.0-100.0); Monocytes % (auto) 8.2 % (0.0-12.0); Neutrophils # (auto) 4.3 10 ^3/uL (1.6-8.6); Neutrophils % (auto) 74.6 % (37.0-80.0); Platelet Count (auto) 146 10^3/uL (140-450); Red Blood Cells 5.47 10^6/uL (4.5-5.90); Red Cell Distribution Width 15.2 % (11.8-14.3)
[2019-08-18 13:19] LABS: Alanine Aminotransferase 48 U/L (16-61); Albumin 3.6 g/dL (3.4-5.0); Amylase 170 U/L (25-115); Anion Gap 10 (5-15); Aspartate Aminotransferase 51 U/L (15-37); BUN/Creatinine Ratio 13.4; Blood Urea Nitrogen 18 mg/dL (7-18); Carbon Dioxide 21 mmol/L (21-32); Chloride 108 mmol/L (98-107); GFR African American 73 mL/min; GFR Non-African American 60 mL/min; Glucose 100 mg/dL (74-106); Lipase 595 U/L (73-393); Potassium 3.5 mmol/L (3.5-5.1); Sodium 139 mmol/L (136-145)
[2019-08-18 13:19] LABS: Amphetamine Screen, Urine NEGATIVE (NEGATIVE); Barbiturate Scree,Urine NEGATIVE (NEGATIVE); Benzodiazephine Screen, Urine NEGATIVE (NEGATIVE); Cannabinoid Screen, Urine POSITIVE (NEGATIVE); Cocaine Screen, Urine NEGATIVE (NEGATIVE); Opiate Scree,Urine NEGATIVE (NEGATIVE); Phencyclidine Screen, Urine NEGATIVE (NEGATIVE)
[2019-08-18 13:24] LABS: Alkaline Phosphatase 48 U/L (45-117); Bilirubin, Total 0.4 mg/dL (0.2-1.0); Total Protein 8.4 g/dL (6.4-8.2)
[2019-08-18] MEDS ORDERED: PROMETHAZINE HCL 25 MG/ML 1ML IV PRN (14:00)
[2019-08-18] MEDS ORDERED: NITROGLYCERIN 0.4 MG SL TAB SL PRN (14:00)
[2019-08-18] MEDS ORDERED: THIAMINE 100mg/ml INJ (200mg/2ml VIAL) IV ONE (14:00)
[2019-08-18] MEDS ORDERED: MORPHINE SULF INJ 2 MG/ML SYRINGE 1ML IV PRN ×3 (14:00)
[2019-08-18] MEDS ORDERED: chlordiazePOXIDE HCL 25 MG CAP PO PRN (14:00)
[2019-08-18] MEDS: SODIUM CHLORIDE 0.9% 1,000 ML IV SCH ×2 (15:06→19:56)
[2019-08-18] MEDS: MORPHINE SULFATE 4 MG/ML SYR/VIAL IV PRN ×2 (15:14→19:51)
--- NOTE | 2019-08-18 15:26 | NUR ---
Telemetry admit from ER SHERRIE MACIAS admitted to Telemetry unit after SBAR received. Patient oriented to Simeon Morocho, primary RN, unit, room, bed, and unit policies regarding patient care and visiting hours. Patient now on continuous telemetry monitoring, tele box # 28 and telemetry reading on arrival to unit is sinus rhythm. Patient weighed by bedscale and encouraged to call if they need something. All questions and concerns addressed, patient verbalized understanding.
[2019-08-18] MEDS: metroNIDAZOLE 500MG/100ML 100 ML IV SCH ×2 (16:16→21:58)
[2019-08-18] MEDS: MAGNESIUM SULFATE 1GM/100ML 100 ML IV SCH ×2 (16:25→18:09)
[2019-08-18] MEDS ORDERED: TEMAZEPAM 15 MG CAP PO PRN (16:30)
[2019-08-18 17:00] VITALS: BP 151/100
[2019-08-18] MEDS: chlordiazePOXIDE HCL 25 MG CAP PO SCH (17:59)
[2019-08-18] MEDS: MORPHINE SULF INJ 2 MG/ML SYRINGE 1ML IV PRN (18:10)
[2019-08-18 18:15] VITALS: BP 151/100
[2019-08-18] MEDS ORDERED: MAGNESIUM SULFATE 1GM/100ML 100 ML IV SCH (18:15)
--- NOTE | 2019-08-18 19:20 | NUR ---
Opening Shift Note Assumed care of patient, awake and alert. No S/S of distress/SOB. The patient c/o severe 10/10 abdominal pain. Will treat with PRN pain medication. Instructed on POC and to call for assist PRN, will continue to monitor for changes Q1hr and PRN.
--- NOTE | 2019-08-18 19:50 | NUR ---
PAIN ASSESSMENT The patient requested pain medication for his 10/10 abdominal pain. Will treat with Morphine 4 mg.
[2019-08-18] MEDS: FAMOTIDINE (10MG/ML) 2ML VL IV SCH (21:59)
[2019-08-18 22:00] VITALS: BP 141/95
[2019-08-19] MEDS: chlordiazePOXIDE HCL 25 MG CAP PO SCH ×4 (00:14→17:49)
[2019-08-19] MEDS: MORPHINE SULFATE 4 MG/ML SYR/VIAL IV PRN ×5 (00:45→19:33)
[2019-08-19] MEDS: MORPHINE SULF INJ 2 MG/ML SYRINGE 1ML IV PRN (00:45)
--- NOTE | 2019-08-19 00:45 | NUR ---
PAIN ASSESSMENT The patient reports having 9/10 abdominal pain and request pain medication. Will treat with PRN Morphine 4 mg and will reassess.
--- NOTE | 2019-08-19 01:45 | NUR ---
REASSESSMENT The patient reports that his current pain is 8/10. Will continue to monitor the patient's status.
--- NOTE | 2019-08-19 05:00 | NUR ---
PAIN ASSESSMENT The patient continues to have severe pain. He reports that his pain is 10/10. Will treat with PRN Morphine 4 mg and reassess.
[2019-08-19] MEDS: SODIUM CHLORIDE 0.9% 1,000 ML IV SCH ×4 (05:02→23:14)
[2019-08-19 05:20] VITALS: BP 140/97
[2019-08-19] MEDS: metroNIDAZOLE 500MG/100ML 100 ML IV SCH ×3 (06:00→22:28)
--- NOTE | 2019-08-19 06:05 | NUR ---
REASSESSMENT The patient reports that his current pain is 9/10. Will continue to monitor the patient's status.
--- NOTE | 2019-08-19 07:00 | NUR ---
Opening Shift Note Received report on the patient. Awake lying in bed. Discussed the plan of care with the patient. Patient shows no signs of distress at this time. Bed in lowest position, side rails up x2, and the call light is within reach. Will continue to monitor.
[2019-08-19 07:06] LABS: Basophils # (auto) 0 10 ^3/uL (0-0.2); Eosinophils # (auto) 0.1 10 ^3/uL (0-0.8); Hemoglobin 12.8 g/dL (13.5-17.5); Lymphocytes # (auto) 0.8 10 ^3/uL (0.4-5.4); Monocytes # (auto) 0.5 10 ^3/uL (0-1.3); Red Blood Cells 4.97 10^6/uL (4.5-5.90); White Blood Cell 4.3 10^3/uL (4.4-10.8)
[2019-08-19 07:08] LABS: Basophils % (auto) 0.4 % (0.0-2.0); Eosinophils % (auto) 2.1 % (0.0-7.0); Hematocrit 39.6 % (41.0-53.0); Lymphocytes % (auto) 19.6 % (10.0-50.0); Mean Corpuscular Hemoglobin 25.8 pg (28.0-32.0); Mean Corpuscular Hgb Conc. 32.3 g/dL (32.0-36.0); Mean Corpuscular Volume 79.7 fL (80.0-100.0); Monocytes % (auto) 11.8 % (0.0-12.0); Neutrophils # (auto) 2.8 10 ^3/uL (1.6-8.6); Neutrophils % (auto) 66.1 % (37.0-80.0); Nucleated Red Blood Cells % 0.2 %; Platelet Count (auto) 103 10^3/uL (140-450); Red Cell Distribution Width 15.6 % (11.8-14.3)
[2019-08-19 07:33] LABS: Potassium 3.1 mmol/L (3.5-5.1)
[2019-08-19 07:39] LABS: Albumin 3.1 g/dL (3.4-5.0); BUN/Creatinine Ratio 12.8; Calcium 8.4 mg/dL (8.5-10.1)
[2019-08-19 07:41] LABS: Bilirubin, Total 0.7 mg/dL (0.2-1.0)
[2019-08-19 09:15] VITALS: BP 131/71
[2019-08-19] MEDS: cefTRIAXone 1GM/50ML D5W 50 ML IV SCH (09:45)
[2019-08-19] MEDS: THIAMINE 100mg/ml INJ (200mg/2ml VIAL) IV SCH (09:45)
[2019-08-19] MEDS: amLODIPine BESYLATE 5 MG TAB PO SCH (09:46)
[2019-08-19] MEDS: FAMOTIDINE (10MG/ML) 2ML VL IV SCH ×2 (09:46→22:28)
[2019-08-19] MEDS ORDERED: POTASSIUM CHLORIDE 20 MEQ, LIDOCAINE 1% (LOCAL ANESTH.) 2 ML in SODIUM CHL 0.9% 100 ML IV ONE (10:30)
--- NOTE | 2019-08-19 11:56 | NUR ---
MD Dr. Kenny at bedside.
[2019-08-19 13:00] VITALS: BP 131/102
[2019-08-19] MEDS ORDERED: ATENOLOL 50 MG TAB PO ONE (16:45)
[2019-08-19] MEDS ORDERED: ENALAPRIL MALEATE 10 MG TAB PO ONE (16:45)
[2019-08-19 17:54] VITALS: BP 135/100
--- NOTE | 2019-08-19 19:20 | NUR ---
Opening Shift Note Assumed care of patient, awake and alert. No S/S of distress/SOB. The patient c/o severe abdominal pain that he reports is a 9/10. Will treat with PRN pain medication. Instructed on POC and to call for assist PRN, will continue to monitor for changes Q1hr and PRN.
[2019-08-19 22:00] VITALS: BP 136/93
[2019-08-20] MEDS: MORPHINE SULFATE 4 MG/ML SYR/VIAL IV PRN ×3 (01:48→10:08)
[2019-08-20 02:00] VITALS: BP 128/87
[2019-08-20 04:32] LABS: Basophils # (auto) 0 10 ^3/uL (0-0.2); Basophils % (auto) 1.1 % (0.0-2.0); Eosinophils # (auto) 0.2 10 ^3/uL (0-0.8); Eosinophils % (auto) 3.4 % (0.0-7.0); Hematocrit 39.1 % (41.0-53.0); Hemoglobin 12.7 g/dL (13.5-17.5); Lymphocytes % (auto) 22.3 % (10.0-50.0); Mean Corpuscular Hemoglobin 25.8 pg (28.0-32.0); Mean Corpuscular Hgb Conc. 32.4 g/dL (32.0-36.0); Mean Corpuscular Volume 79.5 fL (80.0-100.0); Monocytes # (auto) 0.6 10 ^3/uL (0-1.3); Monocytes % (auto) 13.1 % (0.0-12.0); Neutrophils # (auto) 2.8 10 ^3/uL (1.6-8.6); Neutrophils % (auto) 60.1 % (37.0-80.0); Nucleated Red Blood Cells % 0.4 %; Platelet Count (auto) 100 10^3/uL (140-450); Red Blood Cells 4.92 10^6/uL (4.5-5.90); Red Cell Distribution Width 15.3 % (11.8-14.3); White Blood Cell 4.7 10^3/uL (4.4-10.8)
[2019-08-20 04:51] LABS: Albumin 2.7 g/dL (3.4-5.0); Potassium 3.4 mmol/L (3.5-5.1)
[2019-08-20 04:54] LABS: Bilirubin, Total 0.6 mg/dL (0.2-1.0); Total Protein 6.6 g/dL (6.4-8.2)
[2019-08-20] MEDS: SODIUM CHLORIDE 0.9% 1,000 ML IV SCH (05:54)
[2019-08-20 05:57] VITALS: BP 138/76
[2019-08-20] MEDS: chlordiazePOXIDE HCL 25 MG CAP PO SCH ×3 (06:00→12:00)
[2019-08-20] MEDS: metroNIDAZOLE 500MG/100ML 100 ML IV SCH (06:00)
--- NOTE | 2019-08-20 07:30 | NUR ---
Opening Note Assumed patient care from EVER RN.
[2019-08-20 08:00] VITALS: BP 106/82
[2019-08-20 09:00] VITALS: BP 106/82
[2019-08-20] MEDS ORDERED: ENALAPRIL MALEATE 10 MG TAB PO SCH (10:00)
[2019-08-20] MEDS ORDERED: ATENOLOL 50 MG TAB PO SCH (10:00)
[2019-08-20] MEDS: FAMOTIDINE (10MG/ML) 2ML VL IV SCH (10:07)
[2019-08-20] MEDS: THIAMINE 100mg/ml INJ (200mg/2ml VIAL) IV SCH (10:07)
[2019-08-20] MEDS: cefTRIAXone 1GM/50ML D5W 50 ML IV SCH (10:08)
[2019-08-20] MEDS: amLODIPine BESYLATE 5 MG TAB PO SCH (10:09)
--- NOTE | 2019-08-20 10:30 | NUR ---
at bedside Dr. Kenny at bedside discussing plan of care and discharge instructions with patient.
[2019-08-20] MEDS ORDERED: POTASSIUM EFFERVESENT TAB 25 MEQ PO ONE (11:00)
--- NOTE | 2019-08-20 12:47 | NUR ---
Received referral to see pt who is alert and oriented times 3. Pt needed resources for etoh. Pt was receptive to receiving resources. explained to pt that [facility] was probably the best one here [facility]. Explained pt needed to call the facility for an interview. Also recommended [facility] (men) only [phone]. [phone]. Addendum: 08/20/19 at 1410 by OLGA BAJWA SS Amended: Links added.
[2019-08-20 13:00] VITALS: BP 134/98
[2019-08-20 13:34] VITALS: BP 123/87
--- NOTE | 2019-08-20 15:45 | NUR ---
Discharge Instructions given as ordered. Encourage to follow up with PMD as instructed. All questions and concerns addressed. Patient verbalized understanding. IV removed with catheter intact, pressure dressing applied. Telemetry unit returned to ICU. Patient ambulated to vehicle with all personal belongings. No distress noted at time of departure.
--- NOTE | 2019-08-20 16:34 | NUR ---
Tele Box Tele box 28 sent to ICU. Car Seat Coverer aware.
== END 2019-08-20 15:45 | disposition home or self-care (01) | DRG 282 ==
LOC: ER 11:42 → TELE 11:43 → TELE-CENTR 15:29
PROVIDERS: ADMIT Internal Medicine; ATTEND Internal Medicine
DX: K85.20 Alcohol induced acute pancreatitis without necrosis or infection (principal); N17.0 Acute kidney failure with tubular necrosis; E44.0 Moderate protein-calorie malnutrition; K76.0 Fatty (change of) liver, not elsewhere classified; E83.42 Hypomagnesemia; M10.9 Gout, unspecified; K44.9 Diaphragmatic hernia without obstruction or gangrene; K21.9 Gastro-esophageal reflux disease without esophagitis; J45.909 Unspecified asthma, uncomplicated; I12.9 Hypertensive chronic kidney disease with stage 1 through stage 4 chronic kidney disease, or unspecified chronic kidney disease; F10.288 Alcohol dependence with other alcohol-induced disorder; E87.6 Hypokalemia; E78.5 Hyperlipidemia, unspecified; E03.9 Hypothyroidism, unspecified; G40.909 Epilepsy, unspecified, not intractable, without status epilepticus; N18.9 Chronic kidney disease, unspecified; Z79.899 Other long term (current) drug therapy; Z79.51 Long term (current) use of inhaled steroids; Z83.3 Family history of diabetes mellitus; Z82.49 Family history of ischemic heart disease and other diseases of the circulatory system; Z68.25 Body mass index [BMI] 25.0-25.9, adult
CPT/HCPCS: 36415; 71045; 74176; 80053; 80185; 80307; 80320; 81001; 82150; 83690; 83735; 84484; 85025; 96361; 96365; 96366; 96375; G0378; J0696; J2001; J2405; J3490

== ENCOUNTER 2019-09-20 16:31 | Inpatient (IN) | payer MEDICAID ==
[~2019-09-20] VITALS: Ht 185.4 cm; Wt 95.1 kg
[2019-09-20] MEDS ORDERED: SODIUM CHLORIDE 0.9% 1,000 ML IV ONE (16:42)
[2019-09-20] MEDS ORDERED: SODIUM CHLORIDE 0.9% 1,000 ML IVB ONE (16:42)
[2019-09-20] MEDS ORDERED: ONDANSETRON HCL 4 MG/2 ML VIAL IV ONE (16:45)
[2019-09-20] MEDS ORDERED: PIPERACILLIN-TAZOB 3.375GM 100 ML IV ONE (16:45)
[2019-09-20] MEDS ORDERED: MORPHINE SULFATE 4 MG/ML SYR/VIAL IV ONE (16:45)
[2019-09-20] MEDS ORDERED: chlordiazePOXIDE HCL 5 MG CAP PO ONE (17:00)
[2019-09-20] MEDS ORDERED: THIAMINE 100mg/ml INJ (200mg/2ml VIAL) IV ONE (17:15)
[2019-09-20] MEDS ORDERED: FOLIC ACID 1 MG, MULTIPLE VITAMIN 10 ML, MAGNESIUM SULF SDV 50% 8 MEQ, THIAMINE INJ 100... INJ STA ×5 (17:28)
[2019-09-20] MEDS ORDERED: ONDANSETRON HCL 4 MG/2 ML VIAL IV PRN (17:30)
[2019-09-20] MEDS ORDERED: MORPHINE SULF INJ 2 MG/ML SYRINGE 1ML IV PRN (17:30)
[2019-09-20] MEDS ORDERED: NITROGLYCERIN 0.4 MG SL TAB SL PRN (17:30)
[2019-09-20] MEDS ORDERED: DOCUSATE SOD 100 MG CAP PO PRN (17:30)
[2019-09-20] MEDS ORDERED: ALUM & MAG HYDROX-SIMETH LIQ(MAALOX) 30 ML PO PRN (17:30)
[2019-09-20] MEDS ORDERED: LORazepam 0.5 MG TAB PO PRN (17:30)
[2019-09-20 17:31] LABS: Basophils # (auto) 0.1 10 ^3/uL (0-0.2); Eosinophils # (auto) 0 10 ^3/uL (0-0.8); Neutrophils # (auto) 1.8 10 ^3/uL (1.6-8.6); White Blood Cell 4.4 10^3/uL (4.4-10.8)
[2019-09-20] MEDS ORDERED: MAGNESIUM SULF INJ STA (17:31)
[2019-09-20] MEDS ORDERED: FOLIC ACID INJ STA (17:31)
[2019-09-20] MEDS ORDERED: [UNRECOGNIZED DRUG - OTHER] INJ STA (17:31)
[2019-09-20] MEDS ORDERED: MULTIPLE VITAMIN INJ STA (17:31)
[2019-09-20 17:42] LABS: Basophils % (auto) 1.3 % (0.0-2.0); Eosinophils % (auto) 0.7 % (0.0-7.0); Hematocrit 44.4 % (41.0-53.0); Hemoglobin 13.7 g/dL (13.5-17.5); Lymphocytes # (auto) 1.8 10 ^3/uL (0.4-5.4); Lymphocytes % (auto) 42.2 % (10.0-50.0); Mean Corpuscular Hemoglobin 24.6 pg (28.0-32.0); Mean Corpuscular Hgb Conc. 30.9 g/dL (32.0-36.0); Mean Corpuscular Volume 79.5 fL (80.0-100.0); Monocytes # (auto) 0.7 10 ^3/uL (0-1.3); Monocytes % (auto) 15.1 % (0.0-12.0); Neutrophils % (auto) 40.7 % (37.0-80.0); Nucleated Red Blood Cells % 0.7 %; Platelet Count (auto) 137 10^3/uL (140-450); Red Blood Cells 5.58 10^6/uL (4.5-5.90); Red Cell Distribution Width 15.7 % (11.8-14.3)
[2019-09-20 17:48] LABS: Alanine Aminotransferase 36 U/L (16-61); Albumin 3.5 g/dL (3.4-5.0); Anion Gap 22 (5-15); Aspartate Aminotransferase 71 U/L (15-37); BUN/Creatinine Ratio 14.6; Blood Urea Nitrogen 20 mg/dL (7-18); Calcium 8.3 mg/dL (8.5-10.1); Carbon Dioxide 14 mmol/L (21-32); Chloride 100 mmol/L (98-107); GFR African American 71 mL/min; GFR Non-African American 59 mL/min; Glucose 57 mg/dL (74-106); Lipase 1225 U/L (73-393); Potassium 3.8 mmol/L (3.5-5.1); Sodium 136 mmol/L (136-145)
[2019-09-20 17:50] LABS: INR 1.06 (0.9-1.15); Lactic Acid w/Reflex 5.5 mmol/L (0.4-2.0); Partial Thromboplastin Time 25.3 sec (23.64-32.05)
[2019-09-20 17:53] LABS: Alkaline Phosphatase 56 U/L (45-117); Bilirubin, Total 0.7 mg/dL (0.2-1.0); Total Protein 8.2 g/dL (6.4-8.2)
[2019-09-20] MEDS: SODIUM CHLORIDE 0.9% 1,000 ML IV SCH ×2 (18:26→18:55)
[2019-09-20] MEDS: HYDROcodone-ACET 5/325MG TAB PO PRN (18:56)
[2019-09-20 20:56] VITALS: BP 126/86
[2019-09-20] MEDS: MORPHINE SULFATE 4 MG/ML SYR/VIAL IV PRN (21:03)
[2019-09-20] MEDS ORDERED: OME20GT GT (21:14)
[2019-09-20] MEDS ORDERED: HCTZ25T GT (21:14)
[2019-09-20] MEDS ORDERED: FENO54TA4 PO (21:14)
[2019-09-20] MEDS ORDERED: METO-169 PO (21:14)
[2019-09-20] MEDS ORDERED: ALLO300T2 PO (21:14)
[2019-09-20] MEDS ORDERED: LEVO25TA49 PO (21:14)
[2019-09-20] MEDS ORDERED: COLCPOW2 PO (21:14)
[2019-09-20 21:19] LABS: Urine Bacteria NONE SEEN /hpf (None Seen); Urine Blood Negative /uL (Negative); Urine Hyaline Cast FEW /lpf (0 - 2); Urine Specific Gravity 1.013 (1.001-1.035); Urine WBC <1 /hpf (0 - 3)
[2019-09-21] VITALS (7 sets, daily range): BP systolic 131–140; BP diastolic 80–92
[2019-09-21] MEDS ORDERED: SODIUM CHLORIDE 0.9% 1,000 ML IV SCH ×2 (00:30→12:45)
[2019-09-21] MEDS ORDERED: PANTOPRAZOLE 40 MG/10 ML VIAL INJ IV ONE (00:30)
[2019-09-21] MEDS ORDERED: LORazepam 2MG/ML-1ML VIAL IV PRN (00:30)
[2019-09-21] MEDS: MORPHINE SULFATE 4 MG/ML SYR/VIAL IV PRN ×5 (01:13→20:26)
[2019-09-21] MEDS: HYDROcodone-ACET 5/325MG TAB PO PRN (08:06)
[2019-09-21] MEDS ORDERED: PANTOPRAZOLE 40 MG/10 ML VIAL INJ IV SCH (10:00)
[2019-09-21] MEDS ORDERED: FAMOTIDINE (10MG/ML) 2ML VL IV ONE (12:45)
[2019-09-21] MEDS ORDERED: LORazepam 0.5 MG TAB PO PRN (14:45)
[2019-09-21] MEDS ORDERED: ALBUTEROL SULF 2.5 MG/0.5ML(0.5%) NEB SOLN NEB PRN (14:45)
[2019-09-21] MEDS ORDERED: THIAMINE 100mg/ml INJ (200mg/2ml VIAL) IM ONE (14:45)
[2019-09-21] MEDS: SODIUM BICARBONATE 8.4 % INJ 50ML VIAL IV SCH ×2 (16:00→16:05)
[2019-09-21] MEDS: LACTATED RINGER'S 1,000 ML IV SCH ×2 (16:04→19:42)
[2019-09-21] MEDS ORDERED: SODIUM BICARBONATE 8.4 % INJ 50ML VIAL IV SCH (18:00)
[2019-09-21] MEDS: chlordiazePOXIDE HCL 25 MG CAP PO SCH ×2 (18:26→23:42)
[2019-09-21] MEDS ORDERED: FAMOTIDINE (10MG/ML) 2ML VL IV SCH (22:00)
[2019-09-21] MEDS: levETIRAcetam 500 MG TAB PO SCH (22:30)
[2019-09-21] MEDS: FAMOTIDINE 20 MG TAB PO SCH (22:30)
[2019-09-22] MEDS: LACTATED RINGER'S 1,000 ML IV SCH ×5 (01:00→20:51)
[2019-09-22] MEDS: MORPHINE SULFATE 4 MG/ML SYR/VIAL IV PRN ×4 (01:01→20:24)
[2019-09-22 05:00] VITALS: BP 134/87
[2019-09-22] MEDS: chlordiazePOXIDE HCL 25 MG CAP PO SCH ×4 (06:08→23:54)
[2019-09-22] MEDS: LEVOTHYROXINE SODIUM 50 MCG TAB PO SCH (06:08)
[2019-09-22 06:12] LABS: Basophils # (auto) 0 10 ^3/uL (0-0.2); Eosinophils # (auto) 0.1 10 ^3/uL (0-0.8); Hemoglobin 13.2 g/dL (13.5-17.5); Lymphocytes # (auto) 0.9 10 ^3/uL (0.4-5.4); Mean Corpuscular Volume 77.8 fL (80.0-100.0); Red Cell Distribution Width 15.3 % (11.8-14.3)
[2019-09-22 06:15] LABS: Basophils % (auto) 0.4 % (0.0-2.0); Hematocrit 40.1 % (41.0-53.0); Lymphocytes % (auto) 19.2 % (10.0-50.0); Mean Corpuscular Hemoglobin 25.7 pg (28.0-32.0); Monocytes # (auto) 0.5 10 ^3/uL (0-1.3); Monocytes % (auto) 9.9 % (0.0-12.0); Neutrophils # (auto) 3.2 10 ^3/uL (1.6-8.6); Neutrophils % (auto) 68.5 % (37.0-80.0); Nucleated Red Blood Cells % 0.2 %; Platelet Count (auto) 95 10^3/uL (140-450); Red Blood Cells 5.15 10^6/uL (4.5-5.90); White Blood Cell 4.7 10^3/uL (4.4-10.8)
[2019-09-22 06:23] LABS: Potassium 3.1 mmol/L (3.5-5.1)
[2019-09-22 06:32] LABS: Albumin 2.8 g/dL (3.4-5.0); BUN/Creatinine Ratio 7.5; Bilirubin, Total 1.1 mg/dL (0.2-1.0); Calcium 7.9 mg/dL (8.5-10.1); Magnesium 1.5 mg/dL (1.6-2.6); Total Protein 6.6 g/dL (6.4-8.2)
[2019-09-22 08:20] VITALS: BP 112/80
[2019-09-22 08:49] VITALS: BP 112/80
[2019-09-22] MEDS ORDERED: THIAMINE 100mg/ml INJ (200mg/2ml VIAL) IV SCH (10:00)
[2019-09-22] MEDS: THIAMINE HCL 100 MG TAB PO SCH (10:12)
[2019-09-22] MEDS: levETIRAcetam 500 MG TAB PO SCH ×2 (10:12→22:26)
[2019-09-22] MEDS: FAMOTIDINE 20 MG TAB PO SCH ×2 (10:12→22:26)
[2019-09-22] MEDS ORDERED: MAGNESIUM SULFATE 1GM/100ML 100 ML IV SCH (12:00)
[2019-09-22] MEDS: POTASSIUM CHL 20MEQ/100ML 100 ML IV SCH ×2 (12:08→14:14)
[2019-09-22] MEDS ORDERED: LOSA-69 PO (12:29)
[2019-09-22] MEDS ORDERED: LORA-622 PO (12:29)
[2019-09-22 13:00] VITALS: BP 130/89
[2019-09-22 17:00] VITALS: BP 136/80
[2019-09-22] MEDS ORDERED: MAGNESIUM SULFATE 1GM/100ML 200 ML IV ONE (17:45)
[2019-09-22 22:00] VITALS: BP 135/95
[2019-09-23] MEDS: MORPHINE SULFATE 4 MG/ML SYR/VIAL IV PRN ×3 (02:10→21:45)
[2019-09-23] MEDS: LACTATED RINGER'S 1,000 ML IV SCH ×4 (02:10→20:25)
[2019-09-23 05:00] VITALS: BP 138/91
[2019-09-23] MEDS: chlordiazePOXIDE HCL 25 MG CAP PO SCH ×3 (06:16→17:21)
[2019-09-23] MEDS: LEVOTHYROXINE SODIUM 50 MCG TAB PO SCH (06:16)
[2019-09-23 06:52] LABS: Magnesium 1.6 mg/dL (1.6-2.6); Potassium 3.2 mmol/L (3.5-5.1)
[2019-09-23 06:55] LABS: Bilirubin, Total 0.9 mg/dL (0.2-1.0)
[2019-09-23 09:00] VITALS: BP 131/89
[2019-09-23] MEDS: THIAMINE HCL 100 MG TAB PO SCH (10:20)
[2019-09-23] MEDS: levETIRAcetam 500 MG TAB PO SCH ×2 (10:20→21:37)
[2019-09-23] MEDS: FAMOTIDINE 20 MG TAB PO SCH ×2 (10:20→21:38)
[2019-09-23] MEDS: POTASSIUM CHL 20MEQ/100ML 100 ML IV SCH ×2 (12:12→14:06)
[2019-09-23 13:00] VITALS: BP 147/88
[2019-09-23] MEDS ORDERED: MAGNESIUM SULFATE 1GM/100ML 100 ML IV ONE (13:15)
[2019-09-23 17:05] VITALS: BP 140/103
[2019-09-23] MEDS: KETOROLAC TROMETH 30 MG/ML 1ML VIAL IV PRN (17:21)
[2019-09-23 22:00] VITALS: BP 138/98
[2019-09-24] MEDS: MORPHINE SULFATE 4 MG/ML SYR/VIAL IV PRN ×4 (02:08→22:45)
[2019-09-24] MEDS: LACTATED RINGER'S 1,000 ML IV SCH ×4 (02:41→21:04)
[2019-09-24 05:00] VITALS: BP 135/91
[2019-09-24] MEDS: LEVOTHYROXINE SODIUM 50 MCG TAB PO SCH (05:48)
[2019-09-24] MEDS: chlordiazePOXIDE HCL 25 MG CAP PO SCH ×4 (05:48→17:38)
[2019-09-24] MEDS: KETOROLAC TROMETH 30 MG/ML 1ML VIAL IV PRN (05:49)
[2019-09-24 06:38] LABS: Potassium 3.4 mmol/L (3.5-5.1)
[2019-09-24 06:44] LABS: Magnesium 1.9 mg/dL (1.6-2.6)
[2019-09-24 09:00] VITALS: BP 127/93
[2019-09-24] MEDS: FAMOTIDINE 20 MG TAB PO SCH ×2 (09:32→22:44)
[2019-09-24] MEDS: levETIRAcetam 500 MG TAB PO SCH ×2 (09:32→22:44)
[2019-09-24] MEDS: THIAMINE HCL 100 MG TAB PO SCH (09:32)
[2019-09-24] MEDS ORDERED: MAGNESIUM SULFATE 1GM/100ML 100 ML IV ONE (10:45)
[2019-09-24] MEDS: POTASSIUM CHL 20MEQ/100ML 100 ML IV SCH ×2 (12:20→14:32)
[2019-09-24 13:00] VITALS: BP 137/94
[2019-09-24 17:03] VITALS: BP_SYST 110; BP_SYST 156; BP_DIAS 61; BP_DIAS 98
[2019-09-24 22:00] VITALS: BP 148/97
[2019-09-25] MEDS: chlordiazePOXIDE HCL 25 MG CAP PO SCH ×5 (00:11→23:24)
[2019-09-25] MEDS: LACTATED RINGER'S 1,000 ML IV SCH ×4 (04:00→22:30)
[2019-09-25] MEDS: MORPHINE SULFATE 4 MG/ML SYR/VIAL IV PRN ×2 (04:15→20:29)
[2019-09-25 05:00] VITALS: BP 140/92
[2019-09-25 06:10] LABS: Potassium 3.4 mmol/L (3.5-5.1)
[2019-09-25] MEDS: LEVOTHYROXINE SODIUM 50 MCG TAB PO SCH (06:12)
[2019-09-25 06:17] LABS: Albumin 2.6 g/dL (3.4-5.0); Bilirubin, Direct 0.2 mg/dL (0-0.2); Bilirubin, Total 0.7 mg/dL (0.2-1.0); Magnesium 1.7 mg/dL (1.6-2.6); Total Protein 6.5 g/dL (6.4-8.2)
[2019-09-25 09:00] VITALS: BP 143/96
[2019-09-25] MEDS: levETIRAcetam 500 MG TAB PO SCH ×2 (10:04→20:28)
[2019-09-25] MEDS: THIAMINE HCL 100 MG TAB PO SCH (10:04)
[2019-09-25] MEDS: FAMOTIDINE 20 MG TAB PO SCH ×2 (10:05→20:29)
[2019-09-25] MEDS ORDERED: MAGNESIUM SULFATE 1GM/100ML 100 ML IV ONE (12:30)
[2019-09-25] MEDS ORDERED: ALLOPURINOL 300 MG TAB PO ONE (12:30)
[2019-09-25 13:00] VITALS: BP 170/111
[2019-09-25] MEDS: POTASSIUM CHL 20MEQ/100ML 100 ML IV SCH ×2 (14:00→14:49)
[2019-09-25] MEDS ORDERED: METOPROLOL SUCCINATE XL 50 MG TAB PO ONE (14:15)
[2019-09-25 16:57] VITALS: BP 160/113
[2019-09-25] MEDS ORDERED: hydrALAZINE HCL 20 MG/ML VL IV PRN (19:00)
[2019-09-25 22:00] VITALS: BP 144/97
[2019-09-26 05:00] VITALS: BP 123/92
[2019-09-26] MEDS: chlordiazePOXIDE HCL 25 MG CAP PO SCH ×3 (05:37→17:47)
[2019-09-26] MEDS: LEVOTHYROXINE SODIUM 50 MCG TAB PO SCH (05:38)
[2019-09-26] MEDS: MORPHINE SULFATE 4 MG/ML SYR/VIAL IV PRN ×2 (05:38→20:24)
[2019-09-26 06:28] LABS: Potassium 3.5 mmol/L (3.5-5.1)
[2019-09-26 06:36] LABS: Magnesium 1.8 mg/dL (1.6-2.6)
[2019-09-26] MEDS: LACTATED RINGER'S 1,000 ML IV SCH ×2 (08:30→11:00)
[2019-09-26 09:00] VITALS: BP 152/102
[2019-09-26] MEDS: THIAMINE HCL 100 MG TAB PO SCH (09:27)
[2019-09-26] MEDS: levETIRAcetam 500 MG TAB PO SCH ×2 (09:28→21:16)
[2019-09-26] MEDS: METOPROLOL SUCCINATE XL 50 MG TAB PO SCH (09:28)
[2019-09-26] MEDS: FAMOTIDINE 20 MG TAB PO SCH ×2 (09:28→21:16)
[2019-09-26] MEDS: ALLOPURINOL 300 MG TAB PO SCH (09:29)
[2019-09-26] MEDS ORDERED: COLCHICINE 0.6 MG CAP PO ONE (11:45)
[2019-09-26 13:00] VITALS: BP 149/108
[2019-09-26] MEDS ORDERED: MAGNESIUM SULFATE 1GM/100ML 100 ML IV ONE (13:15)
[2019-09-26] MEDS ORDERED: POTASSIUM CHL 20 Meq TABLET PO ONE (13:15)
[2019-09-26] MEDS: KETOROLAC TROMETH 30 MG/ML 1ML VIAL IV PRN (13:48)
[2019-09-26 16:34] VITALS: BP 131/95
[2019-09-26] MEDS: COLCHICINE 0.6 MG CAP PO SCH (21:16)
[2019-09-26 22:00] VITALS: BP 152/100
[2019-09-27 04:55] VITALS: BP 146/94
[2019-09-27] MEDS: LEVOTHYROXINE SODIUM 50 MCG TAB PO SCH (05:57)
[2019-09-27] MEDS: chlordiazePOXIDE HCL 25 MG CAP PO SCH ×3 (05:57→11:48)
[2019-09-27] MEDS: LACTATED RINGER'S 1,000 ML IV SCH (06:04)
[2019-09-27 09:00] VITALS: BP 156/88
[2019-09-27] MEDS: KETOROLAC TROMETH 30 MG/ML 1ML VIAL IV PRN (09:08)
[2019-09-27] MEDS: THIAMINE HCL 100 MG TAB PO SCH (09:08)
[2019-09-27] MEDS: METOPROLOL SUCCINATE XL 50 MG TAB PO SCH (09:09)
[2019-09-27] MEDS: ALLOPURINOL 300 MG TAB PO SCH (09:09)
[2019-09-27] MEDS: COLCHICINE 0.6 MG CAP PO SCH (09:09)
[2019-09-27] MEDS: FAMOTIDINE 20 MG TAB PO SCH (09:09)
[2019-09-27] MEDS: levETIRAcetam 500 MG TAB PO SCH (09:09)
[2019-09-27 13:00] VITALS: BP 130/87
[2019-09-27 15:54] VITALS: BP 130/87
== END 2019-09-27 17:30 | disposition home or self-care (01) | DRG 282 ==
LOC: ER 16:31 → TELE 16:32 → TELE-WESTW 19:55
PROVIDERS: ADMIT Hospitalist; ATTEND Internal Medicine
DX: K85.20 Alcohol induced acute pancreatitis without necrosis or infection (principal); N17.0 Acute kidney failure with tubular necrosis; E87.2 Acidosis; E83.51 Hypocalcemia; D69.6 Thrombocytopenia, unspecified; E86.0 Dehydration; F10.129 Alcohol abuse with intoxication, unspecified; K70.10 Alcoholic hepatitis without ascites; E87.6 Hypokalemia; K29.20 Alcoholic gastritis without bleeding; K86.1 Other chronic pancreatitis; N18.9 Chronic kidney disease, unspecified; I12.9 Hypertensive chronic kidney disease with stage 1 through stage 4 chronic kidney disease, or unspecified chronic kidney disease; K44.9 Diaphragmatic hernia without obstruction or gangrene; K21.9 Gastro-esophageal reflux disease without esophagitis; E03.9 Hypothyroidism, unspecified; M10.9 Gout, unspecified; J44.9 Chronic obstructive pulmonary disease, unspecified; F17.200 Nicotine dependence, unspecified, uncomplicated; F12.10 Cannabis abuse, uncomplicated; G40.909 Epilepsy, unspecified, not intractable, without status epilepticus; Z82.49 Family history of ischemic heart disease and other diseases of the circulatory system; Z83.3 Family history of diabetes mellitus; Z71.41 Alcohol abuse counseling and surveillance of alcoholic
CPT/HCPCS: 36415; 71045; 74176; 80053; 80076; 80320; 81001; 82150; 82247; 83605; 83690; 83735; 84132; 84443; 84484; 85025; 85610; 85730; 87040; 96365; 96366; 96368; 96375; 99291; C9113; G0378; J1885; J2405; J2543; J3480

== ENCOUNTER 2019-10-22 02:32 | Emergency (ER) | payer MEDICAID ==
[~2019-10-22] VITALS: Ht 185.4 cm; Wt 83.9 kg
[~2019-10-22 02:32] MED LIST changes: +ALLO300T2 PO; -ATEN50TA PO; +COLCPOW2 PO; +FENO54TA4 PO; -FLUT100M7; +HCTZ25T GT; +LEVO25TA49 PO; +LORA-622 PO; +LOSA-69 PO; +METO-169 PO; +OME20GT GT; -PHEN-250; -RABE20TA5 PO; -TRIA25CA PO
[2019-10-22] MEDS ORDERED: ONDANSETRON HCL 4 MG/2 ML VIAL IV ONE (04:00)
[2019-10-22] MEDS ORDERED: SODIUM CHLORIDE 0.9% 1,000 ML IV ONE (04:00)
[2019-10-22 04:36] LABS: Basophils # (auto) 0 10 ^3/uL (0-0.2); Eosinophils # (auto) 0.1 10 ^3/uL (0-0.8); Hemoglobin 15.7 g/dL (13.5-17.5); Mean Corpuscular Hgb Conc. 32.6 g/dL (32.0-36.0); Monocytes # (auto) 0.6 10 ^3/uL (0-1.3)
[2019-10-22 04:38] LABS: Basophils % (auto) 0.7 % (0.0-2.0); Eosinophils % (auto) 1.3 % (0.0-7.0); Lymphocytes # (auto) 0.9 10 ^3/uL (0.4-5.4); Lymphocytes % (auto) 23.1 % (10.0-50.0); Mean Corpuscular Hemoglobin 25.8 pg (28.0-32.0); Mean Corpuscular Volume 79.1 fL (80.0-100.0); Monocytes % (auto) 15.2 % (0.0-12.0); Neutrophils # (auto) 2.3 10 ^3/uL (1.6-8.6); Neutrophils % (auto) 59.7 % (37.0-80.0); Nucleated Red Blood Cells % 2.8 %; Platelet Count (auto) 84 10^3/uL (140-450); Red Blood Cells 6.07 10^6/uL (4.5-5.90); Red Cell Distribution Width 17.5 % (11.8-14.3); White Blood Cell 3.9 10^3/uL (4.4-10.8)
[2019-10-22] MEDS ORDERED: MORPHINE SULFATE 4 MG/ML SYR/VIAL IV ONE (04:45)
[2019-10-22 04:54] LABS: Albumin 3.5 g/dL (3.4-5.0); Amylase 64 U/L (25-115); Anion Gap 10 (5-15); Blood Alcohol < 3.0 mg/dL (0-5); Blood Urea Nitrogen 18 mg/dL (7-18); Calcium 8.8 mg/dL (8.5-10.1); Carbon Dioxide 26 mmol/L (21-32); Chloride 99 mmol/L (98-107); Glucose 100 mg/dL (74-106); Lipase 136 U/L (73-393); Sodium 135 mmol/L (136-145)
[2019-10-22 04:58] LABS: Alanine Aminotransferase 75 U/L (16-61); Alkaline Phosphatase 64 U/L (45-117); Aspartate Aminotransferase 94 U/L (15-37); BUN/Creatinine Ratio 13.5; Bilirubin, Total 1.5 mg/dL (0.2-1.0); GFR African American 73 mL/min; GFR Non-African American 61 mL/min; Total Protein 8.3 g/dL (6.4-8.2)
[2019-10-22] MEDS ORDERED: IOHEXOL 300 MG/ML 100ML BOTTLE IJ ONE (05:03)
[2019-10-22 05:07] LABS: Potassium 2.7 mmol/L (3.5-5.1)
[2019-10-22] MEDS ORDERED: POTASSIUM CHL 20MEQ/100ML 100 ML IV ONE (05:15)
[2019-10-22] MEDS ORDERED: POTASSIUM EFFERVESENT TAB 25 MEQ PO ONE (05:15)
[2019-10-22 06:40] LABS: Urine Bacteria NONE SEEN /hpf (None Seen); Urine Blood Negative /uL (Negative); Urine Hyaline Cast FEW /lpf (0 - 2); Urine Specific Gravity 1.024 (1.001-1.035); Urine WBC 1 /hpf (0 - 3)
[2019-10-22 06:59] VITALS: BP 114/91
== END 2019-10-22 07:27 | disposition home or self-care (01) ==
LOC: ER 02:32
DX: G89.29 Other chronic pain (principal); R10.84 Generalized abdominal pain; K74.60 Unspecified cirrhosis of liver; D69.6 Thrombocytopenia, unspecified; E87.6 Hypokalemia; I10 Essential (primary) hypertension; K21.9 Gastro-esophageal reflux disease without esophagitis; E78.5 Hyperlipidemia, unspecified; Z79.899 Other long term (current) drug therapy
CPT/HCPCS: 36415; 74177; 80053; 80320; 81001; 82140; 82150; 83605; 83690; 85025; 96365; 96366; 96375; 99285; J2270; J2405; J3480; J7030; Q9967

== ENCOUNTER → 2019-12-12 | Emergency (ER) | payer MEDICAID ==
[~2019-12-12] VITALS: Ht 185.4 cm; Wt 88.5 kg
[~2019-12-12] MED LIST changes: +FOLIC ACID 1 MG, MULTIPLE VITAMIN 10 ML, MAGNESIUM SULF SDV 50% 8 MEQ, THIAMINE INJ 100... INJ SCH; +ONDANSETRON HCL 4 MG/2 ML VIAL IV ONE; +POTASSIUM CHL 20 Meq TABLET PO ONE; +POTASSIUM CHL 20MEQ/100ML 100 ML IV SCH; +POTASSIUM EFFERVESENT TAB 25 MEQ PO ONE; +PROMETHAZINE HCL 25 MG/ML 1ML IV ONE; +SODIUM CHLORIDE 0.9% 1,000 ML IVB ONE; +cloNIDine HCL 0.1 MG TAB PO ONE; +hydrALAZINE HCL 20 MG/ML VL IV ONE
[2019-12-12 09:01] LABS: Hematocrit 44.4 % (41.0-53.0); Hemoglobin 14.4 g/dL (13.5-17.5); Mean Corpuscular Hgb Conc. 32.4 g/dL (32.0-36.0); Mean Corpuscular Volume 80.4 fL (80.0-100.0); Red Blood Cells 5.52 10^6/uL (4.5-5.90); White Blood Cell 3.6 10^3/uL (4.4-10.8)
[2019-12-12 09:07] LABS: Band Neutrophils % (manual) 0; Basophils % (manual) 0 (0.0-2.0); Blast Cells 0; Eosinophils % (manual) 0 (0-7); Metamyelocytes % 0; Myelocytes % 0; Promyelocytes % 0; Reactive Lymphocytes 0
[2019-12-12 09:16] LABS: Albumin 3.6 g/dL (3.4-5.0); BUN/Creatinine Ratio 8.5; Calcium 8.7 mg/dL (8.5-10.1)
[2019-12-12 09:19] LABS: Bilirubin, Total 1.6 mg/dL (0.2-1.0); Potassium 2.7 mmol/L (3.5-5.1); Total Protein 8.4 g/dL (6.4-8.2)
[2019-12-12 09:30] LABS: Lymphocytes % (manual) 33 (10.0-50.0); Monocytes % (manual) 12 (0-12)
[2019-12-12 09:31] LABS: Platelet Count (auto) 109 10^3/uL (140-450)
[2019-12-12 12:56] LABS: Urine Bacteria NONE SEEN /hpf (None Seen); Urine Blood 2+ /uL (Negative); Urine Hyaline Cast FEW /lpf (0 - 2); Urine Mucus FEW (None Seen); Urine Specific Gravity 1.032 (1.001-1.035); Urine WBC 3 /hpf (0 - 3)
[2019-12-12 17:59] LABS: INR 1.07 (0.9-1.15); Magnesium 1.6 mg/dL (1.6-2.6); Partial Thromboplastin Time 25.4 sec (23.64-32.05)
[2019-12-12 20:08] LABS: Anion Gap 13 (5-15); BUN/Creatinine Ratio 9.8; Blood Alcohol < 3.0 mg/dL (0-5); Blood Urea Nitrogen 10 mg/dL (7-18); Calcium 8.6 mg/dL (8.5-10.1); Carbon Dioxide 21 mmol/L (21-32); Chloride 105 mmol/L (98-107); GFR African American 100 mL/min; GFR Non-African American 83 mL/min; Glucose 86 mg/dL (74-106); Sodium 139 mmol/L (136-145)
[2019-12-12 20:16] LABS: Potassium 2.9 mmol/L (3.5-5.1)
[2019-12-12 23:00] VITALS: BP 149/99
== END | disposition home or self-care (01) ==
LOC: ER 08:03
DX: E87.6 Hypokalemia (principal); R11.2 Nausea with vomiting, unspecified; I10 Essential (primary) hypertension; D69.6 Thrombocytopenia, unspecified; K21.9 Gastro-esophageal reflux disease without esophagitis; E78.5 Hyperlipidemia, unspecified
CPT/HCPCS: 36415; 71046; 74176; 80048; 80053; 80320; 81001; 82150; 83690; 83735; 85007; 85027; 85610; 85730; 96361; 96365; 96375; 99285; J0360; J2405; J2550; J7030

== ENCOUNTER 2020-11-13 07:41 | Emergency (ER) | payer MEDICAID ==
[~2020-11-13] VITALS: Ht 185.4 cm; Wt 79.4 kg
[~2020-11-13 07:41] MED LIST changes: +AMLO-496 PO; -AMLO10TA13 PO; -ENAL20TA PO; +ENAL20TA8 PO; -FOLIC ACID 1 MG, MULTIPLE VITAMIN 10 ML, MAGNESIUM SULF SDV 50% 8 MEQ, THIAMINE INJ 100... INJ SCH; -HCTZ25T GT; +HYDR25TA5 GT; -LEVE500T22; +LEVE500T32; -METO-169 PO; +METO-289 PO; -ONDANSETRON HCL 4 MG/2 ML VIAL IV ONE; -POTASSIUM CHL 20 Meq TABLET PO ONE; -POTASSIUM CHL 20MEQ/100ML 100 ML IV SCH; -POTASSIUM EFFERVESENT TAB 25 MEQ PO ONE; -PROMETHAZINE HCL 25 MG/ML 1ML IV ONE; -SODIUM CHLORIDE 0.9% 1,000 ML IVB ONE; -cloNIDine HCL 0.1 MG TAB PO ONE; -hydrALAZINE HCL 20 MG/ML VL IV ONE
[2020-11-13 08:43] LABS: Basophils # (auto) 0 10 ^3/uL (0-0.2); Basophils % (auto) 0.6 % (0.0-2.0); Eosinophils # (auto) 0 10 ^3/uL (0-0.8); Hemoglobin 11.7 g/dL (13.5-17.5); Lymphocytes # (auto) 0.8 10 ^3/uL (0.4-5.4); Lymphocytes % (auto) 10.7 % (10.0-50.0); Mean Corpuscular Hemoglobin 26.4 pg (28.0-32.0); Mean Corpuscular Hgb Conc. 33.4 g/dL (32.0-36.0); Mean Corpuscular Volume 79.2 fL (80.0-100.0); Monocytes # (auto) 0.6 10 ^3/uL (0-1.3); Monocytes % (auto) 7.7 % (0.0-12.0); Neutrophils # (auto) 6.4 10 ^3/uL (1.6-8.6); Nucleated Red Blood Cells % 0.5 %; Red Blood Cells 4.42 10^6/uL (4.5-5.90); Red Cell Distribution Width 18.4 % (11.8-14.3); White Blood Cell 7.9 10^3/uL (4.4-10.8)
[2020-11-13] MEDS ORDERED: PROCHLORPERAZINE EDISYLATE 5 MG/ML 2ML VIAL IV ONE (08:45)
[2020-11-13] MEDS ORDERED: MORPHINE SULFATE 4 MG/ML SYR/VIAL IV ONE (08:45)
[2020-11-13 09:06] LABS: Potassium 3.9 mmol/L (3.5-5.1)
[2020-11-13 09:12] LABS: Albumin 3.9 g/dL (3.4-5.0); Bilirubin, Total 1.2 mg/dL (0.2-1.0); Total Protein 8.7 g/dL (6.4-8.2)
[2020-11-13] MEDS ORDERED: SODIUM CHLORIDE 0.9% 1,000 ML IV ONE (11:15)
[2020-11-13 11:28] LABS: Alcohol, Urine < 3.0 mg/dL (0-10); Amphetamine Screen, Urine NEGATIVE (NEGATIVE); Barbiturate Scree,Urine NEGATIVE (NEGATIVE); Benzodiazephine Screen, Urine NEGATIVE (NEGATIVE); Cannabinoid Screen, Urine POSITIVE (NEGATIVE); Cocaine Screen, Urine NEGATIVE (NEGATIVE)
[2020-11-13 11:30] LABS: Urine Bacteria FEW /hpf (None Seen); Urine Blood 1+ /uL (Negative); Urine Hyaline Cast FEW /lpf (0 - 2); Urine Mucus FEW (None Seen); Urine Specific Gravity 1.025 (1.001-1.035); Urine WBC 2 /hpf (0 - 3)
[2020-11-13 11:36] LABS: Opiate Scree,Urine POSITIVE (NEGATIVE); Phencyclidine Screen, Urine NEGATIVE (NEGATIVE)
[2020-11-13] MEDS: SODIUM CHLORIDE 0.9% 1,000 ML IV ONE ×2 (12:14→12:31)
[2020-11-13] MEDS ORDERED: cloNIDine HCL 0.1 MG TAB PO ONE ×2 (14:30→15:15)
[2020-11-13 16:00] VITALS: BP 133/94
== END 2020-11-13 16:05 | disposition home or self-care (01) ==
LOC: ER 07:41
DX: K29.70 Gastritis, unspecified, without bleeding (principal); R11.2 Nausea with vomiting, unspecified; F12.10 Cannabis abuse, uncomplicated; K21.9 Gastro-esophageal reflux disease without esophagitis; E78.5 Hyperlipidemia, unspecified; I10 Essential (primary) hypertension
CPT/HCPCS: 36415; 74176; 80053; 80307; 80320; 81001; 82150; 83690; 85025; 85049; 96361; 96374; 96375; 99284; J0780; J2270; J7030

== ENCOUNTER 2021-01-30 23:12 | Inpatient (IN) | payer MEDICAID ==
[~2021-01-30] VITALS: Ht 185.4 cm
[2021-01-30 23:52] LABS: Basophils # (auto) 0 10 ^3/uL (0-0.2); Basophils % (auto) 0.5 % (0.0-2.0); Eosinophils # (auto) 0 10 ^3/uL (0-0.8); Eosinophils % (auto) 0.1 % (0.0-7.0); Hematocrit 40.1 % (41.0-53.0); Lymphocytes # (auto) 0.8 10 ^3/uL (0.4-5.4); Lymphocytes % (auto) 10.9 % (10.0-50.0); Mean Corpuscular Hemoglobin 27.8 pg (28.0-32.0); Mean Corpuscular Hgb Conc. 32.5 g/dL (32.0-36.0); Mean Corpuscular Volume 85.7 fL (80.0-100.0); Monocytes # (auto) 0.5 10 ^3/uL (0-1.3); Monocytes % (auto) 7.7 % (0.0-12.0); Neutrophils # (auto) 5.8 10 ^3/uL (1.6-8.6); Neutrophils % (auto) 80.8 % (37.0-80.0); Nucleated Red Blood Cells % 0.2 %; Red Blood Cells 4.68 10^6/uL (4.5-5.90); White Blood Cell 7.2 10^3/uL (4.4-10.8)
[2021-01-30 23:54] LABS: Red Cell Distribution Width 20.3 % (11.8-14.3)
[2021-01-31 00:07] LABS: Albumin 3.5 g/dL (3.4-5.0); BUN/Creatinine Ratio 13.8; Calcium 9.2 mg/dL (8.5-10.1); Magnesium 1.5 mg/dL (1.6-2.6); Potassium 3.7 mmol/L (3.5-5.1)
[2021-01-31 00:10] LABS: Bilirubin, Total 0.8 mg/dL (0.2-1.0); Total Protein 8.7 g/dL (6.4-8.2)
[2021-01-31] MEDS ORDERED: MORPHINE SULFATE INJECTION 2 MG/ML SYRG IV ONE (01:45)
[2021-01-31] MEDS ORDERED: ONDANSETRON HCL 4 MG/2 ML VIAL IV ONE (01:45)
[2021-01-31 02:54] LABS: Urine Bacteria FEW /hpf (None Seen); Urine Blood Negative /uL (Negative); Urine Hyaline Cast FEW /lpf (0 - 2); Urine Mucus FEW (None Seen); Urine Specific Gravity 1.025 (1.001-1.035); Urine WBC 8 /hpf (0 - 3)
[2021-01-31] MEDS ORDERED: SODIUM CHLORIDE 0.9% 1,000 ML IV SCH ×2 (03:15→03:45)
[2021-01-31] MEDS ORDERED: NITROGLYCERIN 0.4 MG SL TAB SL PRN (03:15)
[2021-01-31] MEDS ORDERED: MORPHINE SULFATE INJECTION 2 MG/ML SYRG IV PRN (03:15)
[2021-01-31] MEDS ORDERED: MORPHINE SULFATE 10 MG/ML INJ 1ML SDV IV ONE (04:00)
[2021-01-31] MEDS ORDERED: MORPHINE SULFATE INJECTION 2 MG/ML SYRG ONE (04:15)
[2021-01-31] MEDS ORDERED: MORPHINE SULFATE 4 MG/ML SYR/VIAL ONE (04:16)
[2021-01-31 05:41] LABS: Amylase 189 U/L (25-115); Lipase 880 U/L (73-393)
[2021-01-31] MEDS: MORPHINE SULFATE 4 MG/ML SYR/VIAL IV PRN ×4 (08:08→22:50)
[2021-01-31] MEDS: ONDANSETRON HCL 4 MG/2 ML VIAL IV PRN ×3 (08:08→16:12)
[2021-01-31] MEDS: cefTRIAXone 1GM/50ML D5W 50 ML IV SCH (10:23)
[2021-01-31] MEDS: FAMOTIDINE (10MG/ML) 2ML VL IV SCH ×2 (10:46→20:53)
[2021-01-31] MEDS: SODIUM CHLORIDE 0.9% 1,000 ML IV SCH ×2 (11:00→18:01)
[2021-01-31 13:00] VITALS: BP 142/98
[2021-01-31] MEDS: hydrALAZINE HCL 20 MG/ML VL IV PRN (16:11)
[2021-01-31 16:26] VITALS: BP 156/90
[2021-01-31 17:11] VITALS: BP 140/82
[2021-01-31] MEDS ORDERED: methylPREDNISolone SOD SUCC 40 MG/ML VL IV ONE (20:00)
[2021-01-31 22:00] VITALS: BP 157/99
[2021-02-01] MEDS: SODIUM CHLORIDE 0.9% 1,000 ML IV SCH ×4 (00:18→18:42)
[2021-02-01] MEDS: hydrALAZINE HCL 20 MG/ML VL IV PRN (00:19)
[2021-02-01] MEDS: MORPHINE SULFATE 4 MG/ML SYR/VIAL IV PRN ×5 (02:26→21:01)
[2021-02-01 05:33] VITALS: BP 147/92
[2021-02-01 05:37] LABS: Basophils # (auto) 0 10 ^3/uL (0-0.2); Basophils % (auto) 0.5 % (0.0-2.0); Eosinophils # (auto) 0 10 ^3/uL (0-0.8); Hematocrit 33.7 % (41.0-53.0); Hemoglobin 11.1 g/dL (13.5-17.5); Lymphocytes # (auto) 0.6 10 ^3/uL (0.4-5.4); Lymphocytes % (auto) 9.9 % (10.0-50.0); Mean Corpuscular Hemoglobin 27.4 pg (28.0-32.0); Mean Corpuscular Hgb Conc. 32.9 g/dL (32.0-36.0); Mean Corpuscular Volume 83.1 fL (80.0-100.0); Monocytes # (auto) 0.1 10 ^3/uL (0-1.3); Monocytes % (auto) 1.3 % (0.0-12.0); Neutrophils # (auto) 5.4 10 ^3/uL (1.6-8.6); Neutrophils % (auto) 88.3 % (37.0-80.0); Nucleated Red Blood Cells % 0.1 %; Red Blood Cells 4.06 10^6/uL (4.5-5.90); Red Cell Distribution Width 19.4 % (11.8-14.3); White Blood Cell 6.1 10^3/uL (4.4-10.8)
[2021-02-01 05:51] LABS: Potassium 3.7 mmol/L (3.5-5.1)
[2021-02-01 06:01] LABS: Albumin 2.9 g/dL (3.4-5.0); BUN/Creatinine Ratio 9.8; Bilirubin, Total 0.8 mg/dL (0.2-1.0); Calcium 8.4 mg/dL (8.5-10.1); Total Protein 7.1 g/dL (6.4-8.2)
[2021-02-01 08:00] VITALS: BP 154/98
[2021-02-01 09:00] VITALS: BP 152/98
[2021-02-01] MEDS ORDERED: methylPREDNISolone SOD SUCC 40 MG/ML VL IV ONE (10:00)
[2021-02-01] MEDS: FAMOTIDINE (10MG/ML) 2ML VL IV SCH (10:15)
[2021-02-01] MEDS: cefTRIAXone 1GM/50ML D5W 50 ML IV SCH (10:16)
[2021-02-01] MEDS ORDERED: PANTOPRAZOLE 40 MG/10 ML VIAL INJ IV ONE (10:45)
[2021-02-01 11:35] LABS: Hematocrit 34.9 % (41.0-53.0); Hemoglobin 11.5 g/dL (13.5-17.5)
[2021-02-01 13:00] VITALS: BP 160/109
[2021-02-01] MEDS: PANTOPRAZOLE 40 MG/10 ML VIAL INJ IV SCH (21:01)
[2021-02-01 22:00] VITALS: BP 140/115
[2021-02-02] MEDS: MORPHINE SULFATE 4 MG/ML SYR/VIAL IV PRN ×5 (01:22→21:03)
[2021-02-02] MEDS: SODIUM CHLORIDE 0.9% 1,000 ML IV SCH ×2 (03:15→09:40)
[2021-02-02 05:00] VITALS: BP 156/105
[2021-02-02 05:32] LABS: Basophils # (auto) 0 10 ^3/uL (0-0.2); Basophils % (auto) 0.4 % (0.0-2.0); Eosinophils # (auto) 0.1 10 ^3/uL (0-0.8); Hematocrit 35.6 % (41.0-53.0); Hemoglobin 11.7 g/dL (13.5-17.5); Lymphocytes # (auto) 1.2 10 ^3/uL (0.4-5.4); Lymphocytes % (auto) 20.6 % (10.0-50.0); Mean Corpuscular Hemoglobin 27.6 pg (28.0-32.0); Mean Corpuscular Hgb Conc. 32.7 g/dL (32.0-36.0); Mean Corpuscular Volume 84.4 fL (80.0-100.0); Monocytes # (auto) 0.6 10 ^3/uL (0-1.3); Monocytes % (auto) 9.6 % (0.0-12.0); Neutrophils # (auto) 3.9 10 ^3/uL (1.6-8.6); Neutrophils % (auto) 68.4 % (37.0-80.0); Nucleated Red Blood Cells % 0.4 %; Red Blood Cells 4.22 10^6/uL (4.5-5.90); Red Cell Distribution Width 19.4 % (11.8-14.3); White Blood Cell 5.8 10^3/uL (4.4-10.8)
[2021-02-02] MEDS: hydrALAZINE HCL 20 MG/ML VL IV PRN (05:42)
[2021-02-02 08:00] VITALS: BP 116/81
[2021-02-02] MEDS: cefTRIAXone 1GM/50ML D5W 50 ML IV SCH (10:04)
[2021-02-02] MEDS: PANTOPRAZOLE 40 MG/10 ML VIAL INJ IV SCH ×2 (10:04→21:03)
[2021-02-02 11:48] LABS: Basophils # (auto) 0 10 ^3/uL (0-0.2); Basophils % (auto) 0.5 % (0.0-2.0); Eosinophils # (auto) 0.1 10 ^3/uL (0-0.8); Eosinophils % (auto) 1.1 % (0.0-7.0); Hematocrit 36.2 % (41.0-53.0); Hemoglobin 11.9 g/dL (13.5-17.5); Lymphocytes # (auto) 1.3 10 ^3/uL (0.4-5.4); Lymphocytes % (auto) 20.7 % (10.0-50.0); Mean Corpuscular Hemoglobin 27.4 pg (28.0-32.0); Mean Corpuscular Hgb Conc. 32.9 g/dL (32.0-36.0); Mean Corpuscular Volume 83.2 fL (80.0-100.0); Monocytes # (auto) 0.6 10 ^3/uL (0-1.3); Monocytes % (auto) 8.9 % (0.0-12.0); Neutrophils # (auto) 4.4 10 ^3/uL (1.6-8.6); Neutrophils % (auto) 68.8 % (37.0-80.0); Nucleated Red Blood Cells % 0.1 %; Red Blood Cells 4.35 10^6/uL (4.5-5.90); Red Cell Distribution Width 19.6 % (11.8-14.3); White Blood Cell 6.3 10^3/uL (4.4-10.8)
[2021-02-02 12:16] LABS: Albumin 2.9 g/dL (3.4-5.0); BUN/Creatinine Ratio 11.5; Bilirubin, Total 0.6 mg/dL (0.2-1.0); Calcium 8.2 mg/dL (8.5-10.1); Total Protein 7.7 g/dL (6.4-8.2)
[2021-02-02 12:19] LABS: Potassium 2.8 mmol/L (3.5-5.1)
[2021-02-02] MEDS ORDERED: POTASSIUM CHLORIDE 40 MEQ, LIDOCAINE 1% (LOCAL ANESTH.) 4 ML in SODIUM CHL 0.9% 250 ML IV ONE (12:45)
[2021-02-02] MEDS ORDERED: POTASSIUM CHL 20 Meq TABLET PO ONE ×2 (12:45→15:15)
[2021-02-02 13:06] VITALS: BP_SYST 135; BP_SYST 152; BP_DIAS 110; BP_DIAS 113
[2021-02-02] MEDS ORDERED: METOPROLOL TARTRATE 50 MG TAB PO ONE (14:00)
[2021-02-02] MEDS ORDERED: THIAMINE HCL 100 MG TAB PO ONE (14:15)
[2021-02-02] MEDS ORDERED: COLCHICINE 0.6 MG CAP PO ONE (14:15)
[2021-02-02] MEDS ORDERED: LOSARTAN POTASSIUM 50 MG TAB PO ONE (14:15)
[2021-02-02] MEDS ORDERED: MULTIPLE VITAMINS W/ MINERALS TAB PO ONE (14:15)
[2021-02-02] MEDS ORDERED: MAGNESIUM OXIDE 400 MG TAB PO ONE (15:15)
[2021-02-02 17:00] VITALS: BP 144/106
[2021-02-02] MEDS ORDERED: HYDROcodone-ACET 7.5/325MG TAB PO ONE (17:45)
[2021-02-02] MEDS: COLCHICINE 0.6 MG CAP PO SCH (21:03)
[2021-02-02] MEDS: levETIRAcetam 500 MG TAB PO SCH (21:03)
[2021-02-02] MEDS: METOPROLOL TARTRATE 50 MG TAB PO SCH (21:05)
[2021-02-02 22:00] VITALS: BP 152/103
[2021-02-03] MEDS: HYDROcodone-ACET 7.5/325MG TAB PO PRN ×3 (00:24→10:21)
[2021-02-03] MEDS: MORPHINE SULFATE 4 MG/ML SYR/VIAL IV PRN ×6 (01:20→21:56)
[2021-02-03 05:17] VITALS: BP 141/94
[2021-02-03] MEDS: LEVOTHYROXINE SODIUM 50 MCG TAB PO SCH (06:23)
[2021-02-03 06:31] LABS: Basophils # (auto) 0 10 ^3/uL (0-0.2); Basophils % (auto) 0.4 % (0.0-2.0); Eosinophils # (auto) 0.1 10 ^3/uL (0-0.8); Eosinophils % (auto) 2.1 % (0.0-7.0); Hematocrit 34.9 % (41.0-53.0); Hemoglobin 11.5 g/dL (13.5-17.5); Lymphocytes # (auto) 1.2 10 ^3/uL (0.4-5.4); Lymphocytes % (auto) 20.2 % (10.0-50.0); Mean Corpuscular Hemoglobin 27.5 pg (28.0-32.0); Mean Corpuscular Volume 83.4 fL (80.0-100.0); Monocytes # (auto) 0.7 10 ^3/uL (0-1.3); Monocytes % (auto) 11.3 % (0.0-12.0); Neutrophils # (auto) 3.9 10 ^3/uL (1.6-8.6); Nucleated Red Blood Cells % 0.3 %; Red Blood Cells 4.18 10^6/uL (4.5-5.90); Red Cell Distribution Width 19.6 % (11.8-14.3); White Blood Cell 5.8 10^3/uL (4.4-10.8)
[2021-02-03 06:34] LABS: Potassium 3.3 mmol/L (3.5-5.1)
[2021-02-03 06:50] LABS: Magnesium 1.2 mg/dL (1.6-2.6)
[2021-02-03] MEDS ORDERED: PRED10TA PO (07:44)
[2021-02-03] MEDS: cefTRIAXone 1GM/50ML D5W 50 ML IV SCH (08:27)
[2021-02-03] MEDS: COLCHICINE 0.6 MG CAP PO SCH ×2 (08:27→21:54)
[2021-02-03] MEDS: PANTOPRAZOLE 40 MG/10 ML VIAL INJ IV SCH (08:27)
[2021-02-03] MEDS: HCTZ 25 MG TAB PO SCH (08:29)
[2021-02-03] MEDS: MULTIPLE VITAMINS W/ MINERALS TAB PO SCH (08:30)
[2021-02-03] MEDS: LOSARTAN POTASSIUM 50 MG TAB PO SCH (08:30)
[2021-02-03] MEDS: ALLOPURINOL 300 MG TAB PO SCH (08:30)
[2021-02-03] MEDS: THIAMINE HCL 100 MG TAB PO SCH (08:31)
[2021-02-03] MEDS: METOPROLOL TARTRATE 50 MG TAB PO SCH ×2 (08:31→21:55)
[2021-02-03] MEDS: predniSONE 5 MG TAB PO SCH (08:32)
[2021-02-03] MEDS: levETIRAcetam 500 MG TAB PO SCH ×2 (08:32→21:55)
[2021-02-03 09:00] VITALS: BP 167/108
[2021-02-03] MEDS ORDERED: POTASSIUM CHL 20 Meq TABLET PO ONE (12:45)
[2021-02-03] MEDS ORDERED: amLODIPine BESYLATE 5 MG TAB PO ONE (12:45)
[2021-02-03 13:00] VITALS: BP 145/109
[2021-02-03] MEDS ORDERED: methylPREDNISolone SOD SUCC 40 MG/ML VL IV ONE (13:15)
[2021-02-03] MEDS: MAGNESIUM SULFATE 1GM/100ML 100 ML IV SCH ×2 (14:11→16:34)
[2021-02-03 16:37] VITALS: BP 148/101
[2021-02-03 22:00] VITALS: BP 126/87
[2021-02-04] MEDS: MORPHINE SULFATE 4 MG/ML SYR/VIAL IV PRN ×2 (03:15→10:41)
[2021-02-04 05:00] VITALS: BP 120/81
[2021-02-04] MEDS: HYDROcodone-ACET 7.5/325MG TAB PO PRN (05:49)
[2021-02-04] MEDS: LEVOTHYROXINE SODIUM 50 MCG TAB PO SCH (05:49)
[2021-02-04 05:52] LABS: Magnesium 2.2 mg/dL (1.6-2.6); Potassium 3.6 mmol/L (3.5-5.1)
[2021-02-04 09:00] VITALS: BP 126/93
[2021-02-04] MEDS ORDERED: POTASSIUM CHL 20 Meq TABLET PO SCH (10:00)
[2021-02-04] MEDS ORDERED: amLODIPine BESYLATE 5 MG TAB PO SCH (10:00)
[2021-02-04] MEDS ORDERED: PANTOPRAZOLE 40 MG TAB PO SCH (10:00)
[2021-02-04] MEDS: THIAMINE HCL 100 MG TAB PO SCH (10:38)
[2021-02-04] MEDS: LOSARTAN POTASSIUM 50 MG TAB PO SCH (10:38)
[2021-02-04] MEDS: predniSONE 5 MG TAB PO SCH (10:38)
[2021-02-04] MEDS: COLCHICINE 0.6 MG CAP PO SCH (10:38)
[2021-02-04] MEDS: HCTZ 25 MG TAB PO SCH (10:39)
[2021-02-04] MEDS: levETIRAcetam 500 MG TAB PO SCH (10:39)
[2021-02-04] MEDS: METOPROLOL TARTRATE 50 MG TAB PO SCH (10:40)
[2021-02-04] MEDS: ALLOPURINOL 300 MG TAB PO SCH (10:40)
[2021-02-04] MEDS: MULTIPLE VITAMINS W/ MINERALS TAB PO SCH (10:40)
[2021-02-04 13:00] VITALS: BP 121/78
[2021-02-04] MEDS ORDERED: methylPREDNISolone SOD SUCC 40 MG/ML VL IV ONE (14:45)
== END 2021-02-04 15:46 | disposition home or self-care (01) | DRG 280 ==
LOC: ER 23:12 → TELE 01-31 03:10 → WEST WING 01-31 11:30
PROVIDERS: ADMIT Nurse Practitioner Family; ATTEND Internal Medicine
DX: K70.9 Alcoholic liver disease, unspecified (principal); K85.20 Alcohol induced acute pancreatitis without necrosis or infection; D69.59 Other secondary thrombocytopenia; E03.9 Hypothyroidism, unspecified; I10 Essential (primary) hypertension; M10.9 Gout, unspecified; K21.9 Gastro-esophageal reflux disease without esophagitis; E87.6 Hypokalemia; G40.909 Epilepsy, unspecified, not intractable, without status epilepticus; K44.9 Diaphragmatic hernia without obstruction or gangrene; E78.5 Hyperlipidemia, unspecified; F10.10 Alcohol abuse, uncomplicated; J44.9 Chronic obstructive pulmonary disease, unspecified; E83.42 Hypomagnesemia; F17.200 Nicotine dependence, unspecified, uncomplicated; Z20.822 Contact with and (suspected) exposure to COVID-19; Z71.6 Tobacco abuse counseling; Z82.49 Family history of ischemic heart disease and other diseases of the circulatory system; Z83.3 Family history of diabetes mellitus; Z71.41 Alcohol abuse counseling and surveillance of alcoholic
CPT/HCPCS: 36415; 74176; 80053; 81001; 82150; 83036; 83690; 83735; 84132; 84443; 85014; 85018; 85025; 85045; 87086; 87426; 96361; 96374; 96375; 97163; C9113; G0378; J0696; J2001; J2405; J3490

== ENCOUNTER 2021-04-22 15:43 | Inpatient (IN) | payer MEDICAID ==
[~2021-04-22] VITALS: Ht 182.9 cm; Wt 79.3 kg
[~2021-04-22 15:43] MED LIST changes: +PRED10TA PO
[2021-04-22 17:08] LABS: Basophils # (auto) 0 10 ^3/uL (0-0.2); Basophils % (auto) 0.5 % (0.0-2.0); Eosinophils # (auto) 0 10 ^3/uL (0-0.8); Hematocrit 39.8 % (41.0-53.0); Hemoglobin 12.8 g/dL (13.5-17.5); Lymphocytes # (auto) 1.6 10 ^3/uL (0.4-5.4); Lymphocytes % (auto) 25.1 % (10.0-50.0); Mean Corpuscular Hemoglobin 26.9 pg (28.0-32.0); Mean Corpuscular Hgb Conc. 32.2 g/dL (32.0-36.0); Mean Corpuscular Volume 83.4 fL (80.0-100.0); Monocytes # (auto) 0.6 10 ^3/uL (0-1.3); Monocytes % (auto) 8.9 % (0.0-12.0); Neutrophils # (auto) 4.2 10 ^3/uL (1.6-8.6); Neutrophils % (auto) 65.5 % (37.0-80.0); Nucleated Red Blood Cells % 1.2 %; Red Blood Cells 4.77 10^6/uL (4.5-5.90); White Blood Cell 6.3 10^3/uL (4.4-10.8)
[2021-04-22] MEDS ORDERED: MORPHINE SULFATE 4 MG/ML SYR/VIAL IV ONE (17:15)
[2021-04-22] MEDS ORDERED: SODIUM CHLORIDE 0.9% 1,000 ML IVB ONE (17:15)
[2021-04-22] MEDS ORDERED: ONDANSETRON HCL 4 MG/2 ML VIAL IV ONE (17:15)
[2021-04-22] MEDS ORDERED: PANTOPRAZOLE 40 MG/10 ML VIAL INJ IV ONE (17:15)
[2021-04-22 17:26] LABS: Potassium 4.5 mmol/L (3.5-5.1)
[2021-04-22 17:32] LABS: Albumin 3.8 g/dL (3.4-5.0); BUN/Creatinine Ratio 14.2; Bilirubin, Total 0.9 mg/dL (0.2-1.0); Calcium 9.3 mg/dL (8.5-10.1); Total Protein 8.7 g/dL (6.4-8.2)
[2021-04-22] MEDS ORDERED: ACETAMINOPHEN 325 MG TAB PO PRN (21:30)
[2021-04-22] MEDS ORDERED: chlordiazePOXIDE HCL 25 MG CAP PO PRN (21:30)
[2021-04-22] MEDS: MORPHINE SULFATE INJECTION 2 MG/ML SYRG IV PRN (23:26)
[2021-04-22] MEDS: ONDANSETRON HCL 4 MG/2 ML VIAL IV PRN (23:27)
[2021-04-22] MEDS: SODIUM CHLORIDE 0.9% 1,000 ML IV SCH (23:55)
[2021-04-22] MEDS: levETIRAcetam 500 MG TAB PO SCH (23:55)
[2021-04-22] MEDS: METOPROLOL TARTRATE 25 MG TAB PO SCH (23:56)
[2021-04-23] MEDS: HYDROcodone-ACET 5/325MG TAB PO PRN ×3 (01:08→17:16)
[2021-04-23 01:11] LABS: Urine Bacteria FEW /hpf (None Seen); Urine Blood Negative /uL (Negative); Urine Mucus FEW (None Seen); Urine Specific Gravity 1.029 (1.001-1.035); Urine WBC 2 /hpf (0 - 3)
[2021-04-23] MEDS: MORPHINE SULFATE INJECTION 2 MG/ML SYRG IV PRN ×2 (04:18→20:07)
[2021-04-23] MEDS: ONDANSETRON HCL 4 MG/2 ML VIAL IV PRN (04:19)
[2021-04-23] MEDS: LEVOTHYROXINE SODIUM 50 MCG TAB PO SCH (06:16)
[2021-04-23 07:22] LABS: Calcium 8.1 mg/dL (8.5-10.1); Magnesium 1.4 mg/dL (1.6-2.6); Potassium 3.7 mmol/L (3.5-5.1)
[2021-04-23 07:26] LABS: BUN/Creatinine Ratio 16.5; Bilirubin, Total 1.4 mg/dL (0.2-1.0)
[2021-04-23 08:12] LABS: Basophils # (auto) 0 10 ^3/uL (0-0.2); Eosinophils # (auto) 0 10 ^3/uL (0-0.8); Nucleated Red Blood Cells % 0.5 %; White Blood Cell 4.9 10^3/uL (4.4-10.8)
[2021-04-23 08:14] LABS: Basophils % (auto) 0.5 % (0.0-2.0); Eosinophils % (auto) 0.5 % (0.0-7.0); Hemoglobin 10.9 g/dL (13.5-17.5); Mean Corpuscular Hemoglobin 26.8 pg (28.0-32.0); Mean Corpuscular Hgb Conc. 32.1 g/dL (32.0-36.0); Mean Corpuscular Volume 83.4 fL (80.0-100.0); Neutrophils # (auto) 2.8 10 ^3/uL (1.6-8.6); Neutrophils % (auto) 57.1 % (37.0-80.0); Red Blood Cells 4.07 10^6/uL (4.5-5.90); Red Cell Distribution Width 18.4 % (11.8-14.3)
[2021-04-23 08:15] LABS: Monocytes % (auto) 17.9 % (0.0-12.0)
[2021-04-23 08:16] LABS: Lymphocytes # (auto) 1.2 10 ^3/uL (0.4-5.4); Monocytes # (auto) 0.9 10 ^3/uL (0-1.3)
[2021-04-23] MEDS: SODIUM CHLORIDE 0.9% 1,000 ML IV SCH ×2 (09:16→21:30)
[2021-04-23] MEDS: PANTOPRAZOLE 40 MG/10 ML VIAL INJ IV SCH (10:00)
[2021-04-23] MEDS: METOPROLOL TARTRATE 25 MG TAB PO SCH ×2 (10:00→22:34)
[2021-04-23] MEDS: HCTZ 25 MG TAB PO SCH (10:00)
[2021-04-23] MEDS: amLODIPine BESYLATE 5 MG TAB PO SCH (10:00)
[2021-04-23] MEDS: levETIRAcetam 500 MG TAB PO SCH ×2 (10:00→22:30)
[2021-04-23] MEDS: MULTIPLE VITAMIN 10 ML, MAGNESIUM SULF SDV 50% 8 MEQ, THIAMINE INJ 100 MG in SODIUM CHL... IV SCH (12:40)
[2021-04-23 17:00] VITALS: BP 138/94
[2021-04-23 20:00] VITALS: BP 136/99
[2021-04-23 22:00] VITALS: BP 138/103
[2021-04-24] MEDS: MORPHINE SULFATE INJECTION 2 MG/ML SYRG IV PRN ×3 (02:03→20:25)
[2021-04-24 05:00] VITALS: BP 119/83
[2021-04-24 06:23] LABS: Basophils # (auto) 0 10 ^3/uL (0-0.2); Basophils % (auto) 0.6 % (0.0-2.0); Eosinophils # (auto) 0.1 10 ^3/uL (0-0.8); Eosinophils % (auto) 2.5 % (0.0-7.0); Hematocrit 33.8 % (41.0-53.0); Hemoglobin 10.8 g/dL (13.5-17.5); Lymphocytes # (auto) 1.3 10 ^3/uL (0.4-5.4); Lymphocytes % (auto) 24.2 % (10.0-50.0); Mean Corpuscular Hemoglobin 27.1 pg (28.0-32.0); Mean Corpuscular Volume 84.7 fL (80.0-100.0); Monocytes # (auto) 0.9 10 ^3/uL (0-1.3); Monocytes % (auto) 16.4 % (0.0-12.0); Neutrophils # (auto) 3.1 10 ^3/uL (1.6-8.6); Neutrophils % (auto) 56.3 % (37.0-80.0); Nucleated Red Blood Cells % 0.6 %; Red Blood Cells 3.99 10^6/uL (4.5-5.90); Red Cell Distribution Width 18.6 % (11.8-14.3); White Blood Cell 5.4 10^3/uL (4.4-10.8)
[2021-04-24 06:38] LABS: BUN/Creatinine Ratio 16.3; Potassium 3.4 mmol/L (3.5-5.1)
[2021-04-24] MEDS: LEVOTHYROXINE SODIUM 50 MCG TAB PO SCH (06:43)
[2021-04-24] MEDS: SODIUM CHLORIDE 0.9% 1,000 ML IV SCH ×2 (08:15→22:00)
[2021-04-24] MEDS: HYDROcodone-ACET 5/325MG TAB PO PRN ×2 (08:16→16:51)
[2021-04-24 08:47] VITALS: BP 129/83
[2021-04-24] MEDS: HCTZ 25 MG TAB PO SCH (08:54)
[2021-04-24] MEDS: PANTOPRAZOLE 40 MG/10 ML VIAL INJ IV SCH (08:54)
[2021-04-24] MEDS: METOPROLOL TARTRATE 25 MG TAB PO SCH ×2 (08:55→22:00)
[2021-04-24] MEDS: levETIRAcetam 500 MG TAB PO SCH ×2 (08:55→20:24)
[2021-04-24] MEDS: amLODIPine BESYLATE 5 MG TAB PO SCH (08:57)
[2021-04-24] MEDS ORDERED: POTASSIUM CHL 20 Meq TABLET PO ONE (10:00)
[2021-04-24] MEDS: ALLOPURINOL 300 MG TAB PO SCH (11:04)
[2021-04-24] MEDS: predniSONE 5 MG TAB PO SCH ×2 (12:50→20:23)
[2021-04-24] MEDS: COLCHICINE 0.6 MG CAP PO SCH ×2 (12:50→20:24)
[2021-04-24] MEDS: MULTIPLE VITAMIN 10 ML, MAGNESIUM SULF SDV 50% 8 MEQ, THIAMINE INJ 100 MG in SODIUM CHL... IV SCH (12:57)
[2021-04-24 13:00] VITALS: BP 127/78
[2021-04-24 16:56] VITALS: BP 124/81
[2021-04-24 22:00] VITALS: BP 126/82
[2021-04-25 05:00] VITALS: BP 124/86
[2021-04-25] MEDS: METOPROLOL TARTRATE 25 MG TAB PO SCH ×3 (05:02→22:51)
[2021-04-25] MEDS: LEVOTHYROXINE SODIUM 50 MCG TAB PO SCH (05:26)
[2021-04-25] MEDS: predniSONE 5 MG TAB PO SCH ×3 (05:26→22:49)
[2021-04-25] MEDS: MORPHINE SULFATE INJECTION 2 MG/ML SYRG IV PRN ×3 (05:27→22:56)
[2021-04-25 06:29] LABS: Potassium 4.3 mmol/L (3.5-5.1)
[2021-04-25 06:47] LABS: Basophils # (auto) 0 10 ^3/uL (0-0.2); Eosinophils # (auto) 0 10 ^3/uL (0-0.8); Eosinophils % (auto) 0.2 % (0.0-7.0); Monocytes # (auto) 0.7 10 ^3/uL (0-1.3); Red Cell Distribution Width 18.1 % (11.8-14.3)
[2021-04-25 06:48] LABS: Basophils % (auto) 0.2 % (0.0-2.0); Hematocrit 34.1 % (41.0-53.0); Hemoglobin 11.1 g/dL (13.5-17.5); Lymphocytes # (auto) 1.4 10 ^3/uL (0.4-5.4); Lymphocytes % (auto) 21.2 % (10.0-50.0); Mean Corpuscular Hemoglobin 27.4 pg (28.0-32.0); Mean Corpuscular Hgb Conc. 32.4 g/dL (32.0-36.0); Mean Corpuscular Volume 84.4 fL (80.0-100.0); Neutrophils # (auto) 4.4 10 ^3/uL (1.6-8.6); Neutrophils % (auto) 67.4 % (37.0-80.0); Nucleated Red Blood Cells % 1.3 %; Red Blood Cells 4.04 10^6/uL (4.5-5.90); White Blood Cell 6.5 10^3/uL (4.4-10.8)
[2021-04-25 06:54] LABS: BUN/Creatinine Ratio 14.9; Calcium 7.8 mg/dL (8.5-10.1)
[2021-04-25 09:00] VITALS: BP 133/92
[2021-04-25] MEDS: PANTOPRAZOLE 40 MG/10 ML VIAL INJ IV SCH (11:25)
[2021-04-25] MEDS: COLCHICINE 0.6 MG CAP PO SCH ×2 (11:26→22:50)
[2021-04-25] MEDS: amLODIPine BESYLATE 5 MG TAB PO SCH (11:35)
[2021-04-25] MEDS: HCTZ 25 MG TAB PO SCH (11:36)
[2021-04-25] MEDS: levETIRAcetam 500 MG TAB PO SCH ×2 (11:39→22:50)
[2021-04-25] MEDS: ALLOPURINOL 300 MG TAB PO SCH (11:40)
[2021-04-25] MEDS: SODIUM CHLORIDE 0.9% 1,000 ML IV SCH ×2 (11:46→22:49)
[2021-04-25 13:00] VITALS: BP 135/96
[2021-04-25 17:00] VITALS: BP 125/84
[2021-04-25] MEDS: MULTIPLE VITAMIN 10 ML, MAGNESIUM SULF SDV 50% 8 MEQ, THIAMINE INJ 100 MG in SODIUM CHL... IV SCH (17:16)
[2021-04-25 22:00] VITALS: BP 123/85
[2021-04-26] MEDS: MORPHINE SULFATE INJECTION 2 MG/ML SYRG IV PRN ×2 (04:24→10:55)
[2021-04-26 05:00] VITALS: BP 136/104
[2021-04-26] MEDS: predniSONE 5 MG TAB PO SCH ×2 (06:18→14:00)
[2021-04-26] MEDS: LEVOTHYROXINE SODIUM 50 MCG TAB PO SCH (06:18)
[2021-04-26 09:17] VITALS: BP 137/97
[2021-04-26] MEDS: ALLOPURINOL 300 MG TAB PO SCH (10:45)
[2021-04-26] MEDS: HCTZ 25 MG TAB PO SCH (10:45)
[2021-04-26] MEDS: METOPROLOL TARTRATE 25 MG TAB PO SCH (10:45)
[2021-04-26] MEDS: COLCHICINE 0.6 MG CAP PO SCH (10:46)
[2021-04-26] MEDS: PANTOPRAZOLE 40 MG/10 ML VIAL INJ IV SCH (10:46)
[2021-04-26] MEDS: amLODIPine BESYLATE 5 MG TAB PO SCH (10:46)
[2021-04-26] MEDS: SODIUM CHLORIDE 0.9% 1,000 ML IV SCH (10:46)
[2021-04-26] MEDS: levETIRAcetam 500 MG TAB PO SCH (10:54)
[2021-04-26 10:55] VITALS: BP 137/97
[2021-04-26] MEDS: MULTIPLE VITAMIN 10 ML, MAGNESIUM SULF SDV 50% 8 MEQ, THIAMINE INJ 100 MG in SODIUM CHL... IV SCH (14:20)
== END 2021-04-26 14:25 | disposition home or self-care (01) | DRG 282 ==
LOC: ER 15:43 → OVERFLOW 21:24 → CENTRAL 04-23 17:18
PROVIDERS: ADMIT Nurse Practitioner; ATTEND Internal Medicine Pulmonary Disease
DX: K85.20 Alcohol induced acute pancreatitis without necrosis or infection (principal); N17.9 Acute kidney failure, unspecified; E44.1 Mild protein-calorie malnutrition; K74.60 Unspecified cirrhosis of liver; F12.90 Cannabis use, unspecified, uncomplicated; M10.9 Gout, unspecified; E78.5 Hyperlipidemia, unspecified; I10 Essential (primary) hypertension; K21.9 Gastro-esophageal reflux disease without esophagitis; F10.10 Alcohol abuse, uncomplicated; Z20.822 Contact with and (suspected) exposure to COVID-19; J47.9 Bronchiectasis, uncomplicated; K76.0 Fatty (change of) liver, not elsewhere classified; Z80.9 Family history of malignant neoplasm, unspecified; Z82.49 Family history of ischemic heart disease and other diseases of the circulatory system; Z83.3 Family history of diabetes mellitus
CPT/HCPCS: 36415; 74176; 80048; 80053; 80320; 81001; 82150; 83690; 83735; 84484; 85025; 87426; 93005; 96361; 96374; 96375; C9113; G0378; J2405

== ENCOUNTER 2021-08-10 10:15 | Inpatient (IN) | payer MEDICAID ==
[~2021-08-10] VITALS: Ht 185.4 cm; Wt 92.2 kg
[2021-08-10] MEDS ORDERED: SODIUM CHLORIDE 0.9% 1,000 ML IVB ONE (10:30)
[2021-08-10] MEDS ORDERED: MORPHINE SULFATE 4 MG/ML SYR/VIAL IV ONE (10:30)
[2021-08-10] MEDS ORDERED: SODIUM CHLORIDE 0.9% 1,000 ML IV ONE (10:30)
[2021-08-10] MEDS ORDERED: ONDANSETRON HCL 4 MG/2 ML VIAL IV ONE (10:30)
[2021-08-10] MEDS ORDERED: HYDROmorphone HCL 2 MG/ML VL IV ONE (12:15)
[2021-08-10] MEDS ORDERED: LABETALOL HCL 5 MG/ML 4ML SYRINGE IV ONE (12:30)
[2021-08-10 12:51] LABS: Basophils # (auto) 0 10 ^3/uL (0-0.2); Basophils % (auto) 0.2 % (0.0-2.0); Eosinophils # (auto) 0 10 ^3/uL (0-0.8); Mean Corpuscular Hemoglobin 24.7 pg (28.0-32.0); Mean Corpuscular Volume 76.2 fL (80.0-100.0); Monocytes # (auto) 0.6 10 ^3/uL (0-1.3); Neutrophils % (auto) 50.2 % (37.0-80.0); Red Cell Distribution Width 18.9 % (11.8-14.3)
[2021-08-10 12:53] LABS: Hemoglobin 14.3 g/dL (13.5-17.5); Lymphocytes # (auto) 2.3 10 ^3/uL (0.4-5.4); Lymphocytes % (auto) 39.3 % (10.0-50.0); Mean Corpuscular Hgb Conc. 32.5 g/dL (32.0-36.0); Monocytes % (auto) 10.3 % (0.0-12.0); Nucleated Red Blood Cells % 1.1 %; Red Blood Cells 5.77 10^6/uL (4.5-5.90); White Blood Cell 5.9 10^3/uL (4.4-10.8)
[2021-08-10 12:54] LABS: Albumin 3.5 g/dL (3.4-5.0); Calcium 9.2 mg/dL (8.5-10.1); Potassium 3.7 mmol/L (3.5-5.1)
[2021-08-10 12:58] LABS: BUN/Creatinine Ratio 16.2; Bilirubin, Total 0.6 mg/dL (0.2-1.0)
[2021-08-10 12:59] LABS: Urine Bacteria NONE SEEN /hpf (None Seen); Urine Blood Negative /uL (Negative); Urine Mucus FEW (None Seen); Urine Specific Gravity 1.029 (1.001-1.035); Urine WBC 1 /hpf (0 - 3)
[2021-08-10] MEDS ORDERED: LABETALOL HCL 5 MG/ML ML 20ML VIAL IV ONE (13:00)
[2021-08-10 13:02] LABS: Amphetamine Screen, Urine NEGATIVE (NEGATIVE); Barbiturate Scree,Urine NEGATIVE (NEGATIVE); Phencyclidine Screen, Urine NEGATIVE (NEGATIVE)
[2021-08-10 13:10] LABS: Benzodiazephine Screen, Urine NEGATIVE (NEGATIVE); Cannabinoid Screen, Urine POSITIVE (NEGATIVE); Cocaine Screen, Urine NEGATIVE (NEGATIVE); Opiate Scree,Urine POSITIVE (NEGATIVE)
[2021-08-10] MEDS ORDERED: THIAMINE 100mg/ml INJ (200mg/2ml VIAL) IV ONE (13:15)
[2021-08-10] MEDS ORDERED: SODIUM CHLORIDE 0.9% 1,000 ML IV SCH (13:15)
[2021-08-10] MEDS ORDERED: LORazepam 2MG/ML-1ML VIAL IV PRN (13:15)
[2021-08-10] MEDS ORDERED: LORazepam 2MG/ML-1ML VIAL IV ONE (13:15)
[2021-08-10] MEDS ORDERED: ONDANSETRON HCL 4 MG/2 ML VIAL IV PRN (13:15)
[2021-08-10] MEDS ORDERED: SODIUM CHLORIDE 0.9% 2,000 ML IV ONE (13:15)
[2021-08-10 13:20] LABS: Bilirubin, Total 0.6 mg/dL (0.2-1.0)
[2021-08-10 14:52] LABS: Magnesium 1.6 mg/dL (1.6-2.6)
[2021-08-10] MEDS: hydrALAZINE HCL 20 MG/ML VL IV PRN ×2 (15:16→22:57)
[2021-08-10 16:23] VITALS: BP 158/115
[2021-08-10] MEDS: LACTATED RINGER'S 1,000 ML IV SCH ×2 (16:41→21:50)
[2021-08-10] MEDS ORDERED: GABA-339 PO (17:24)
[2021-08-10] MEDS ORDERED: INDO50CA82 PO (17:24)
[2021-08-10] MEDS ORDERED: ATOR10TA52 PO (17:24)
[2021-08-10] MEDS ORDERED: HYDR50TA15 PO (17:24)
[2021-08-10] MEDS: LEVOTHYROXINE SODIUM 25 MCG TAB PO SCH (18:14)
[2021-08-10] MEDS: LABETALOL HCL 5 MG/ML 4ML SYRINGE IV PRN (18:36)
[2021-08-10 21:25] VITALS: BP 160/100
[2021-08-10] MEDS: predniSONE 5 MG TAB PO SCH (21:45)
[2021-08-10] MEDS: METOPROLOL SUCCINATE XL 50 MG TAB PO SCH (21:45)
[2021-08-10] MEDS: MORPHINE SULFATE INJECTION 2 MG/ML SYRG IV PRN (21:47)
[2021-08-10] MEDS ORDERED: ENALAPRIL MALEATE 10 MG TAB PO SCH (22:00)
[2021-08-11] MEDS ORDERED: KETOROLAC TROMETH 30 MG/ML 1ML VIAL IV ONE (00:45)
[2021-08-11] MEDS: LABETALOL HCL 5 MG/ML 4ML SYRINGE IV PRN (00:57)
[2021-08-11 05:24] VITALS: BP 150/99
[2021-08-11] MEDS: predniSONE 5 MG TAB PO SCH ×3 (06:05→21:02)
[2021-08-11] MEDS: LEVOTHYROXINE SODIUM 25 MCG TAB PO SCH ×2 (06:06→17:00)
[2021-08-11] MEDS: LACTATED RINGER'S 1,000 ML IV SCH ×3 (06:08→20:22)
[2021-08-11] MEDS: MORPHINE SULFATE INJECTION 2 MG/ML SYRG IV PRN (06:10)
[2021-08-11 06:12] LABS: Basophils # (auto) 0 10 ^3/uL (0-0.2); Eosinophils # (auto) 0 10 ^3/uL (0-0.8); Monocytes # (auto) 0.4 10 ^3/uL (0-1.3); Red Blood Cells 4.98 10^6/uL (4.5-5.90); Red Cell Distribution Width 18.4 % (11.8-14.3); White Blood Cell 6.2 10^3/uL (4.4-10.8)
[2021-08-11 06:15] LABS: Basophils % (auto) 0.2 % (0.0-2.0); Hemoglobin 12.4 g/dL (13.5-17.5); Lymphocytes % (auto) 15.6 % (10.0-50.0); Mean Corpuscular Hemoglobin 24.9 pg (28.0-32.0); Mean Corpuscular Hgb Conc. 33.5 g/dL (32.0-36.0); Mean Corpuscular Volume 74.3 fL (80.0-100.0); Monocytes % (auto) 6.6 % (0.0-12.0); Neutrophils # (auto) 4.8 10 ^3/uL (1.6-8.6); Neutrophils % (auto) 77.6 % (37.0-80.0); Nucleated Red Blood Cells % 0.4 %
[2021-08-11 06:26] LABS: Potassium 3.3 mmol/L (3.5-5.1)
[2021-08-11 06:30] LABS: Albumin 3.1 g/dL (3.4-5.0)
[2021-08-11 06:51] LABS: Bilirubin, Total 1.2 mg/dL (0.2-1.0); Total Protein 6.5 g/dL (6.4-8.2)
[2021-08-11 09:00] VITALS: BP 150/116
[2021-08-11] MEDS ORDERED: LORazepam 2MG/ML-1ML VIAL IV PRN (10:30)
[2021-08-11] MEDS: HCTZ 25 MG TAB GT SCH (11:32)
[2021-08-11] MEDS: LOSARTAN POTASSIUM 50 MG TAB PO SCH (11:33)
[2021-08-11] MEDS: levETIRAcetam 500 MG TAB PO SCH (11:34)
[2021-08-11] MEDS: amLODIPine BESYLATE 5 MG TAB PO SCH (11:35)
[2021-08-11] MEDS: METOPROLOL SUCCINATE XL 50 MG TAB PO SCH ×2 (11:35→21:03)
[2021-08-11] MEDS: ALLOPURINOL 300 MG TAB PO SCH (11:36)
[2021-08-11] MEDS: oxyCODONE HCL 5MG TAB PO PRN ×2 (12:00→19:56)
[2021-08-11 13:00] VITALS: BP 175/110
[2021-08-11 16:42] VITALS: BP 145/106
[2021-08-11] MEDS: LORazepam 0.5 MG TAB PO PRN (19:55)
[2021-08-11] MEDS: MAGNESIUM OXIDE 400 MG TAB PO SCH (21:03)
[2021-08-11 22:00] VITALS: BP 158/100
[2021-08-12] MEDS: LACTATED RINGER'S 1,000 ML IV SCH ×4 (04:18→22:00)
[2021-08-12] MEDS: oxyCODONE HCL 5MG TAB PO PRN ×3 (04:23→19:43)
[2021-08-12 05:00] VITALS: BP 148/111
[2021-08-12 05:50] LABS: Basophils # (auto) 0 10 ^3/uL (0-0.2); Basophils % (auto) 0.1 % (0.0-2.0); Eosinophils # (auto) 0 10 ^3/uL (0-0.8); Hemoglobin 12.7 g/dL (13.5-17.5); Lymphocytes % (auto) 25.9 % (10.0-50.0); Nucleated Red Blood Cells % 0.9 %
[2021-08-12 05:53] LABS: Eosinophils % (auto) 0.3 % (0.0-7.0); Hematocrit 37.7 % (41.0-53.0); Lymphocytes # (auto) 1.5 10 ^3/uL (0.4-5.4); Mean Corpuscular Hemoglobin 25.1 pg (28.0-32.0); Mean Corpuscular Hgb Conc. 33.8 g/dL (32.0-36.0); Mean Corpuscular Volume 74.2 fL (80.0-100.0); Monocytes # (auto) 0.6 10 ^3/uL (0-1.3); Monocytes % (auto) 9.4 % (0.0-12.0); Neutrophils # (auto) 3.8 10 ^3/uL (1.6-8.6); Neutrophils % (auto) 64.3 % (37.0-80.0); Red Blood Cells 5.08 10^6/uL (4.5-5.90); Red Cell Distribution Width 18.2 % (11.8-14.3); White Blood Cell 5.9 10^3/uL (4.4-10.8)
[2021-08-12] MEDS: predniSONE 5 MG TAB PO SCH ×3 (06:00→21:36)
[2021-08-12] MEDS: LEVOTHYROXINE SODIUM 25 MCG TAB PO SCH ×2 (06:00→17:00)
[2021-08-12 06:10] LABS: BUN/Creatinine Ratio 9.1; Calcium 7.9 mg/dL (8.5-10.1); Magnesium 1.1 mg/dL (1.6-2.6); Potassium 3.2 mmol/L (3.5-5.1)
[2021-08-12 09:27] VITALS: BP 153/106
[2021-08-12] MEDS: THIAMINE HCL 100 MG TAB PO SCH (10:00)
[2021-08-12] MEDS: ENOXAPARIN SOD 40 MG/0.4 ML SYRINGE SC SCH (10:00)
[2021-08-12] MEDS: MAGNESIUM OXIDE 400 MG TAB PO SCH ×2 (10:00→21:36)
[2021-08-12] MEDS ORDERED: POTASSIUM CHL 20 Meq TABLET PO SCH (10:00)
[2021-08-12] MEDS: HCTZ 25 MG TAB GT SCH (10:00)
[2021-08-12] MEDS: levETIRAcetam 500 MG TAB PO SCH (10:00)
[2021-08-12] MEDS: MAGNESIUM SULFATE 1GM/100ML 100 ML IV SCH ×4 (11:00→16:12)
[2021-08-12] MEDS: FOLIC ACID 1 MG TAB PO SCH (11:22)
[2021-08-12] MEDS: LOSARTAN POTASSIUM 50 MG TAB PO SCH (11:26)
[2021-08-12] MEDS: POTASSIUM CHL 20 Meq TABLET PO SCH ×2 (11:29→21:36)
[2021-08-12] MEDS: MULTIPLE VITAMIN TAB PO SCH (11:29)
[2021-08-12] MEDS: amLODIPine BESYLATE 5 MG TAB PO SCH (11:30)
[2021-08-12] MEDS: METOPROLOL SUCCINATE XL 50 MG TAB PO SCH ×2 (11:31→21:37)
[2021-08-12] MEDS: PANTOPRAZOLE 40 MG TAB PO SCH (11:31)
[2021-08-12] MEDS: ALLOPURINOL 300 MG TAB PO SCH (11:31)
[2021-08-12 16:31] VITALS: BP 133/100
[2021-08-12] MEDS: LORazepam 0.5 MG TAB PO PRN ×2 (16:39→23:57)
[2021-08-12] MEDS ORDERED: MAGNESIUM SULFATE 1GM/100ML 100 ML IV ONE (18:23)
[2021-08-12 22:00] VITALS: BP 134/91
[2021-08-13] MEDS: LACTATED RINGER'S 1,000 ML IV SCH ×2 (03:30→07:01)
[2021-08-13 05:00] VITALS: BP 133/98
[2021-08-13] MEDS: oxyCODONE HCL 5MG TAB PO PRN ×3 (05:25→16:47)
[2021-08-13] MEDS: predniSONE 5 MG TAB PO SCH ×3 (05:25→21:05)
[2021-08-13] MEDS: LEVOTHYROXINE SODIUM 25 MCG TAB PO SCH ×2 (05:25→16:46)
[2021-08-13 06:00] LABS: Basophils # (auto) 0 10 ^3/uL (0-0.2); Basophils % (auto) 0.2 % (0.0-2.0); Eosinophils # (auto) 0 10 ^3/uL (0-0.8); Eosinophils % (auto) 0.6 % (0.0-7.0); Hematocrit 39.4 % (41.0-53.0); Lymphocytes # (auto) 1.2 10 ^3/uL (0.4-5.4); Lymphocytes % (auto) 19.6 % (10.0-50.0); Mean Corpuscular Hemoglobin 24.9 pg (28.0-32.0); Mean Corpuscular Hgb Conc. 33.1 g/dL (32.0-36.0); Mean Corpuscular Volume 75.3 fL (80.0-100.0); Monocytes # (auto) 0.7 10 ^3/uL (0-1.3); Neutrophils # (auto) 4.4 10 ^3/uL (1.6-8.6); Neutrophils % (auto) 68.6 % (37.0-80.0); Nucleated Red Blood Cells % 0.8 %; Red Blood Cells 5.23 10^6/uL (4.5-5.90); Red Cell Distribution Width 18.8 % (11.8-14.3); White Blood Cell 6.4 10^3/uL (4.4-10.8)
[2021-08-13 06:21] LABS: BUN/Creatinine Ratio 12.2; Calcium 8.2 mg/dL (8.5-10.1); Magnesium 2.6 mg/dL (1.6-2.6); Potassium 4.3 mmol/L (3.5-5.1)
[2021-08-13 08:44] VITALS: BP 136/102
[2021-08-13] MEDS ORDERED: LACTATED RINGER'S 1,000 ML IV SCH (09:00)
[2021-08-13] MEDS ORDERED: MORPHINE SULFATE INJECTION 2 MG/ML SYRG IV PRN (09:00)
[2021-08-13] MEDS: THIAMINE HCL 100 MG TAB PO SCH (09:32)
[2021-08-13] MEDS: HCTZ 25 MG TAB GT SCH (09:32)
[2021-08-13] MEDS: FOLIC ACID 1 MG TAB PO SCH (09:32)
[2021-08-13] MEDS: levETIRAcetam 500 MG TAB PO SCH (09:33)
[2021-08-13] MEDS: MAGNESIUM OXIDE 400 MG TAB PO SCH ×2 (09:33→21:05)
[2021-08-13] MEDS: LOSARTAN POTASSIUM 50 MG TAB PO SCH (09:33)
[2021-08-13] MEDS: METOPROLOL SUCCINATE XL 50 MG TAB PO SCH ×2 (09:33→21:06)
[2021-08-13] MEDS: POTASSIUM CHL 20 Meq TABLET PO SCH ×2 (09:33→21:05)
[2021-08-13] MEDS: ALLOPURINOL 300 MG TAB PO SCH (09:33)
[2021-08-13] MEDS: ENOXAPARIN SOD 40 MG/0.4 ML SYRINGE SC SCH (09:33)
[2021-08-13] MEDS: MULTIPLE VITAMIN TAB PO SCH (09:33)
[2021-08-13] MEDS: PANTOPRAZOLE 40 MG TAB PO SCH (09:33)
[2021-08-13] MEDS: amLODIPine BESYLATE 5 MG TAB PO SCH (09:33)
[2021-08-13 13:00] VITALS: BP 134/94
[2021-08-13 16:23] VITALS: BP 123/83
[2021-08-13] MEDS: LORazepam 0.5 MG TAB PO PRN (21:53)
[2021-08-13 22:00] VITALS: BP 119/84
[2021-08-14] MEDS: oxyCODONE HCL 5MG TAB PO PRN (04:27)
[2021-08-14 05:00] VITALS: BP 129/88
[2021-08-14] MEDS: predniSONE 5 MG TAB PO SCH (06:19)
[2021-08-14] MEDS: LEVOTHYROXINE SODIUM 25 MCG TAB PO SCH (06:19)
[2021-08-14] MEDS: MAGNESIUM OXIDE 400 MG TAB PO SCH (10:00)
[2021-08-14] MEDS ORDERED: ONDA-144 PO (10:17)
[2021-08-14 10:32] VITALS: BP 108/79
[2021-08-14] MEDS: MULTIPLE VITAMIN TAB PO SCH (10:38)
[2021-08-14] MEDS: PANTOPRAZOLE 40 MG TAB PO SCH (10:38)
[2021-08-14] MEDS: POTASSIUM CHL 20 Meq TABLET PO SCH (10:38)
[2021-08-14] MEDS: FOLIC ACID 1 MG TAB PO SCH (10:38)
[2021-08-14] MEDS: ALLOPURINOL 300 MG TAB PO SCH (10:39)
[2021-08-14] MEDS: METOPROLOL SUCCINATE XL 50 MG TAB PO SCH (10:39)
[2021-08-14] MEDS: levETIRAcetam 500 MG TAB PO SCH (10:39)
[2021-08-14] MEDS: HCTZ 25 MG TAB GT SCH (10:40)
[2021-08-14] MEDS: THIAMINE HCL 100 MG TAB PO SCH (10:40)
== END 2021-08-14 11:15 | disposition home or self-care (01) | DRG 282 ==
LOC: ER 10:15 → EDBD 10:15 → EDUNIT# 10:15 → OVERFLOW 13:02 → WEST WING 16:22
PROVIDERS: ADMIT Registered Nurse; ATTEND Hospitalist
DX: K85.20 Alcohol induced acute pancreatitis without necrosis or infection (principal); K74.60 Unspecified cirrhosis of liver; D64.9 Anemia, unspecified; E03.9 Hypothyroidism, unspecified; F10.129 Alcohol abuse with intoxication, unspecified; G40.909 Epilepsy, unspecified, not intractable, without status epilepticus; E78.5 Hyperlipidemia, unspecified; F12.10 Cannabis abuse, uncomplicated; Y90.4 Blood alcohol level of 80-99 mg/100 ml; E87.6 Hypokalemia; E83.42 Hypomagnesemia; Z20.822 Contact with and (suspected) exposure to COVID-19; I10 Essential (primary) hypertension; K21.9 Gastro-esophageal reflux disease without esophagitis; M10.9 Gout, unspecified; Z80.9 Family history of malignant neoplasm, unspecified; Z82.49 Family history of ischemic heart disease and other diseases of the circulatory system; Z83.3 Family history of diabetes mellitus
CPT/HCPCS: 36415; 71045; 74176; 80048; 80053; 80307; 80320; 81001; 82150; 82247; 82542; 83690; 83735; 84075; 84484; 85025; 93005; 96361; 96374; 96375; G0378; J1885; J2405; J3490

== ENCOUNTER 2021-11-19 16:31 | Inpatient (IN) | payer MEDICAID ==
[~2021-11-19] VITALS: Ht 190.5 cm; Wt 109.2 kg
[~2021-11-19 16:31] MED LIST changes: +ATOR10TA52 PO; +GABA-339 PO; +HYDR50TA15 PO; +INDO50CA82 PO; -LEVE500T32; +LEVE500T32 PO; +ONDA-144 PO
[2021-11-19] MEDS ORDERED: SODIUM CHLORIDE 0.9% 1,000 ML IV ONE ×2 (17:00→17:45)
[2021-11-19] MEDS ORDERED: GLUCAGON HYDROCHLORIDE (RDNA) 1 MG VIAL IV ONE ×2 (17:00→18:15)
[2021-11-19] MEDS ORDERED: SODIUM CHLORIDE 0.9% 500 ML IVB ONE (17:00)
[2021-11-19] MEDS ORDERED: NOREPINEPHRINE 8 MG/250ML KIT 250 ML IV ONE (17:33)
[2021-11-19] MEDS ORDERED: GLUCAGON HYDROCHLORIDE (RDNA) 1 MG VIAL ONE (18:01)
[2021-11-19 18:04] LABS: Hematocrit 31.4 % (41.0-53.0); Hemoglobin 9.9 g/dL (13.5-17.5); Mean Corpuscular Hemoglobin 25.7 pg (28.0-32.0); Mean Corpuscular Hgb Conc. 31.5 g/dL (32.0-36.0); Mean Corpuscular Volume 81.8 fL (80.0-100.0); Red Blood Cells 3.83 10^6/uL (4.5-5.90); White Blood Cell 4.4 10^3/uL (4.4-10.8)
[2021-11-19 18:08] LABS: Band Neutrophils % (manual) 0; Basophils % (manual) 0 (0.0-2.0); Blast Cells 0; Metamyelocytes % 0; Myelocytes % 0; Promyelocytes % 0; Reactive Lymphocytes 0
[2021-11-19 18:26] LABS: BUN/Creatinine Ratio 14.3; Calcium 7.3 mg/dL (8.5-10.1); Potassium 3.9 mmol/L (3.5-5.1)
[2021-11-19 18:28] LABS: Bilirubin, Total 0.7 mg/dL (0.2-1.0)
[2021-11-19] MEDS ORDERED: ACETAMINOPHEN 325 MG TAB PO ONE (20:15)
[2021-11-19 20:42] LABS: Eosinophils % (manual) 2 (0-7); Lymphocytes % (manual) 23 (10.0-50.0); Monocytes % (manual) 19 (0-12)
[2021-11-19] MEDS ORDERED: ONDANSETRON HCL 4 MG/2 ML VIAL IV PRN (21:00)
[2021-11-19] MEDS ORDERED: ACETAMINOPHEN 325 MG TAB PO PRN (21:00)
[2021-11-19] MEDS ORDERED: DOCUSATE SOD 100 MG CAP PO PRN (21:00)
[2021-11-19] MEDS: SODIUM CHLORIDE 0.9% 1,000 ML IV SCH (21:15)
[2021-11-19] MEDS: HYDROcodone-ACET 5/325MG TAB PO PRN (23:55)
[2021-11-20] MEDS: LORazepam 0.5 MG TAB PO PRN (00:56)
[2021-11-20 03:25] LABS: Basophils # (auto) 0 10 ^3/uL (0-0.2); Eosinophils # (auto) 0.1 10 ^3/uL (0-0.8); Lymphocytes # (auto) 1.6 10 ^3/uL (0.4-5.4); Monocytes # (auto) 0.8 10 ^3/uL (0-1.3); Nucleated Red Blood Cells % 0.3 %; White Blood Cell 5.7 10^3/uL (4.4-10.8)
[2021-11-20 03:26] LABS: Basophils % (auto) 0.8 % (0.0-2.0); Eosinophils % (auto) 1.6 % (0.0-7.0); Hematocrit 29.8 % (41.0-53.0); Hemoglobin 9.4 g/dL (13.5-17.5); Mean Corpuscular Hemoglobin 25.8 pg (28.0-32.0); Mean Corpuscular Hgb Conc. 31.5 g/dL (32.0-36.0); Monocytes % (auto) 14.4 % (0.0-12.0); Neutrophils # (auto) 3.1 10 ^3/uL (1.6-8.6); Neutrophils % (auto) 55.2 % (37.0-80.0); Red Blood Cells 3.63 10^6/uL (4.5-5.90); Red Cell Distribution Width 16.5 % (11.8-14.3)
[2021-11-20 03:43] LABS: BUN/Creatinine Ratio 17.5; Calcium 7.4 mg/dL (8.5-10.1); Potassium 3.6 mmol/L (3.5-5.1)
[2021-11-20] MEDS: HYDROcodone-ACET 5/325MG TAB PO PRN (09:08)
[2021-11-20 09:19] VITALS: BP 132/87
[2021-11-20 10:53] VITALS: BP 132/84
[2021-11-20 13:00] VITALS: BP 115/81
[2021-11-20] MEDS: MORPHINE SULFATE INJ 2 MG/ml SYRG IV PRN ×2 (13:18→20:13)
[2021-11-20 17:00] VITALS: BP 122/88
[2021-11-20] MEDS: SODIUM CHLORIDE 0.9% 1,000 ML IV SCH ×2 (18:52→20:14)
[2021-11-20 20:01] VITALS: BP 148/88
[2021-11-20 22:00] VITALS: BP 142/88
[2021-11-21] MEDS: MORPHINE SULFATE INJ 2 MG/ml SYRG IV PRN ×2 (00:15→05:08)
[2021-11-21] MEDS: LORazepam 0.5 MG TAB PO PRN (01:41)
[2021-11-21 05:00] VITALS: BP 135/100
[2021-11-21 09:00] VITALS: BP 136/98
[2021-11-21] MEDS: SODIUM CHLORIDE 0.9% 1,000 ML IV SCH (09:43)
[2021-11-21] MEDS ORDERED: ENOXAPARIN SOD 40 MG/0.4 ML SYRINGE SC SCH (10:00)
[2021-11-21 10:25] LABS: Basophils # (auto) 0 10 ^3/uL (0-0.2); Eosinophils # (auto) 0.1 10 ^3/uL (0-0.8); Eosinophils % (auto) 1.3 % (0.0-7.0); Neutrophils # (auto) 2.2 10 ^3/uL (1.6-8.6); Nucleated Red Blood Cells % 0.2 %
[2021-11-21 10:27] LABS: Basophils % (auto) 0.7 % (0.0-2.0); Hematocrit 31.6 % (41.0-53.0); Hemoglobin 9.9 g/dL (13.5-17.5); Lymphocytes # (auto) 1.2 10 ^3/uL (0.4-5.4); Lymphocytes % (auto) 29.7 % (10.0-50.0); Mean Corpuscular Hemoglobin 25.5 pg (28.0-32.0); Mean Corpuscular Hgb Conc. 31.3 g/dL (32.0-36.0); Mean Corpuscular Volume 81.7 fL (80.0-100.0); Monocytes # (auto) 0.5 10 ^3/uL (0-1.3); Monocytes % (auto) 13.4 % (0.0-12.0); Neutrophils % (auto) 54.9 % (37.0-80.0); Red Blood Cells 3.87 10^6/uL (4.5-5.90); Red Cell Distribution Width 16.3 % (11.8-14.3); White Blood Cell 4.1 10^3/uL (4.4-10.8)
[2021-11-21 10:39] LABS: Albumin 2.9 g/dL (3.4-5.0); BUN/Creatinine Ratio 16.1; Calcium 8.1 mg/dL (8.5-10.1); Potassium 3.9 mmol/L (3.5-5.1)
[2021-11-21 10:42] LABS: Bilirubin, Total 0.5 mg/dL (0.2-1.0); Total Protein 6.2 g/dL (6.4-8.2)
== END 2021-11-21 14:31 | disposition home or self-care (01) | DRG 422 ==
LOC: EDBD 16:31 → ER 16:31 → TELE 20:54 → TELE-CENTR 11-20 07:30
PROVIDERS: ADMIT Hospitalist; ATTEND Family Medicine
DX: E86.0 Dehydration (principal); N17.9 Acute kidney failure, unspecified; D69.6 Thrombocytopenia, unspecified; E46 Unspecified protein-calorie malnutrition; I95.9 Hypotension, unspecified; R56.9 Unspecified convulsions; R55 Syncope and collapse; D64.9 Anemia, unspecified; K21.9 Gastro-esophageal reflux disease without esophagitis; Z20.822 Contact with and (suspected) exposure to COVID-19; I10 Essential (primary) hypertension; M10.9 Gout, unspecified; F10.129 Alcohol abuse with intoxication, unspecified; Z68.30 Body mass index [BMI] 30.0-30.9, adult; Z83.3 Family history of diabetes mellitus; Z80.0 Family history of malignant neoplasm of digestive organs; Z82.49 Family history of ischemic heart disease and other diseases of the circulatory system
CPT/HCPCS: 36415; 70450; 72125; 74176; 80048; 80053; 80061; 80320; 82270; 83036; 83605; 84484; 85007; 85025; 85027; 93005; 93306; 93886; 96361; 96374; G0378; J2405

== ENCOUNTER 2021-12-31 09:46 | Inpatient (IN) | payer MEDICAID ==
[~2021-12-31] VITALS: Ht 185.4 cm; Wt 88.4 kg
[~2021-12-31 09:46] MED LIST changes: -AMLO-496 PO; -ENAL20TA8 PO; -HYDR25TA5 GT; -LOSA-69 PO
[2021-12-31] MEDS ORDERED: MORPHINE SULFATE 4 MG/ML SYR/VIAL IV ONE (10:00)
[2021-12-31] MEDS ORDERED: SODIUM CHLORIDE 0.9% 1,000 ML IVB ONE (10:00)
[2021-12-31] MEDS ORDERED: PANTOPRAZOLE 40 MG/10 ML VIAL INJ IV ONE (10:00)
[2021-12-31] MEDS ORDERED: PROCHLORPERAZINE EDISYLATE 5 MG/ML 2ML VIAL IV ONE (10:00)
[2021-12-31 10:39] LABS: Basophils # (auto) 0 10 ^3/uL (0-0.2); Basophils % (auto) 0.4 % (0.0-2.0); Eosinophils # (auto) 0 10 ^3/uL (0-0.8); Mean Corpuscular Hemoglobin 25.2 pg (28.0-32.0); Mean Corpuscular Hgb Conc. 31.4 g/dL (32.0-36.0); Monocytes # (auto) 0.9 10 ^3/uL (0-1.3); White Blood Cell 5.5 10^3/uL (4.4-10.8)
[2021-12-31 10:42] LABS: Eosinophils % (auto) 0.1 % (0.0-7.0); Hematocrit 41.8 % (41.0-53.0); Hemoglobin 13.1 g/dL (13.5-17.5); Lymphocytes # (auto) 1.1 10 ^3/uL (0.4-5.4); Lymphocytes % (auto) 20.6 % (10.0-50.0); Mean Corpuscular Volume 80.1 fL (80.0-100.0); Monocytes % (auto) 16.6 % (0.0-12.0); Neutrophils # (auto) 3.5 10 ^3/uL (1.6-8.6); Neutrophils % (auto) 62.3 % (37.0-80.0); Nucleated Red Blood Cells % 1.2 %; Red Blood Cells 5.22 10^6/uL (4.5-5.90); Red Cell Distribution Width 16.9 % (11.8-14.3)
[2021-12-31 11:01] LABS: Albumin 3.7 g/dL (3.4-5.0); Calcium 8.6 mg/dL (8.5-10.1); Potassium 3.9 mmol/L (3.5-5.1)
[2021-12-31 11:06] LABS: BUN/Creatinine Ratio 8.4; Bilirubin, Total 1.8 mg/dL (0.2-1.0); Total Protein 8.4 g/dL (6.4-8.2)
[2021-12-31 12:53] LABS: Urine Bacteria NONE SEEN /hpf (None Seen); Urine Blood Negative /uL (Negative); Urine Hyaline Cast FEW /lpf (0 - 2); Urine Mucus FEW (None Seen); Urine Specific Gravity 1.033 (1.001-1.035); Urine WBC 13 /hpf (0 - 3)
[2021-12-31 13:12] LABS: Alcohol, Urine < 3.0 mg/dL (0-10); Amphetamine Screen, Urine NEGATIVE (NEGATIVE); Barbiturate Scree,Urine NEGATIVE (NEGATIVE); Benzodiazephine Screen, Urine POSITIVE (NEGATIVE); Cannabinoid Screen, Urine POSITIVE (NEGATIVE); Cocaine Screen, Urine NEGATIVE (NEGATIVE); Phencyclidine Screen, Urine NEGATIVE (NEGATIVE)
[2021-12-31 13:21] LABS: Opiate Scree,Urine POSITIVE (NEGATIVE)
[2021-12-31] MEDS ORDERED: PROMETHAZINE HCL 25 MG/ML 1ML IV PRN (16:45)
[2021-12-31 16:59] LABS: Cholesterol 186 mg/dL (< 200); Triglycerides 146 mg/dL (< 150)
[2021-12-31] MEDS: SUCRALFATE 1 GM/10 ML ORAL SUSP PO SCH ×3 (17:00→22:35)
[2021-12-31 17:02] LABS: HDL Cholesterol 70 mg/dL (40-59); LDL Cholesterol 111 mg/dL (< 100)
[2021-12-31 17:09] LABS: INR 1.08 (0.9-1.15)
[2021-12-31] MEDS ORDERED: hydrALAZINE HCL 20 MG/ML VL IV PRN (17:30)
[2021-12-31] MEDS: SODIUM CHLORIDE 0.9% 1,000 ML IV SCH (18:25)
[2021-12-31 19:47] LABS: Hepatitis A Ab IgM Negative; Hepatitis B Core IgM Negative; Hepatitis C Antibody Negative (Negative)
[2021-12-31] MEDS: PANTOPRAZOLE 40 MG/10 ML VIAL INJ IV SCH (22:33)
[2021-12-31] MEDS: MORPHINE SULFATE INJ 2 MG/ml SYRG IV PRN (22:41)
[2021-12-31 23:34] VITALS: BP 158/115
[2022-01-01] MEDS: SODIUM CHLORIDE 0.9% 1,000 ML IV SCH ×3 (02:09→14:37)
[2022-01-01] MEDS: MORPHINE SULFATE INJ 2 MG/ml SYRG IV PRN ×2 (03:51→21:40)
[2022-01-01 05:00] VITALS: BP 136/100
[2022-01-01 05:59] LABS: Basophils # (auto) 0 10 ^3/uL (0-0.2); Eosinophils # (auto) 0 10 ^3/uL (0-0.8); Lymphocytes # (auto) 1.3 10 ^3/uL (0.4-5.4); Nucleated Red Blood Cells % 0.4 %
[2022-01-01 06:07] LABS: Basophils % (auto) 0.7 % (0.0-2.0); Eosinophils % (auto) 0.4 % (0.0-7.0); Hematocrit 38.3 % (41.0-53.0); Hemoglobin 12.3 g/dL (13.5-17.5); Lymphocytes % (auto) 23.1 % (10.0-50.0); Mean Corpuscular Hemoglobin 26.1 pg (28.0-32.0); Mean Corpuscular Hgb Conc. 32.1 g/dL (32.0-36.0); Mean Corpuscular Volume 81.3 fL (80.0-100.0); Monocytes # (auto) 0.7 10 ^3/uL (0-1.3); Monocytes % (auto) 12.5 % (0.0-12.0); Neutrophils # (auto) 3.7 10 ^3/uL (1.6-8.6); Neutrophils % (auto) 63.3 % (37.0-80.0); Red Blood Cells 4.72 10^6/uL (4.5-5.90); Red Cell Distribution Width 17.2 % (11.8-14.3); White Blood Cell 5.8 10^3/uL (4.4-10.8)
[2022-01-01] MEDS: SUCRALFATE 1 GM/10 ML ORAL SUSP PO SCH ×4 (06:08→21:35)
[2022-01-01 06:29] LABS: Albumin 3.2 g/dL (3.4-5.0); BUN/Creatinine Ratio 11.4; Bilirubin, Total 1.2 mg/dL (0.2-1.0); Calcium 7.5 mg/dL (8.5-10.1); Total Protein 7.6 g/dL (6.4-8.2)
[2022-01-01 07:09] LABS: Potassium 2.7 mmol/L (3.5-5.1)
[2022-01-01 07:30] VITALS: BP 152/109
[2022-01-01] MEDS ORDERED: LIDOCAINE VISCOUS 2% 15ML UD ONE ×2 (08:02→08:45)
[2022-01-01 08:48] VITALS: BP 153/104
[2022-01-01] MEDS ORDERED: POTASSIUM CHL 20MEQ/100ML 100 ML IV ONE (08:49)
[2022-01-01] MEDS ORDERED: fentaNYL CITRATE 100 MCG/2 ML VL ONE (09:21)
[2022-01-01] MEDS ORDERED: DexAMETHasone SOD PHOS 10MG/1ML VIAL INJ ONE (09:22)
[2022-01-01] MEDS ORDERED: PROPOFOL 10 MG/ML 20 ML IV ONE (09:22)
[2022-01-01] MEDS ORDERED: MIDAZOLAM HCL 2MG/2ML 2ml VIAL (1mg/ml) ONE (09:22)
[2022-01-01] MEDS ORDERED: ONDANSETRON HCL 4 MG/2 ML VIAL IV PRN (10:15)
[2022-01-01] MEDS ORDERED: HYDROmorphone HCL 2 MG/ML VL/or syr IV PRN (10:15)
[2022-01-01] MEDS ORDERED: LABETALOL HCL 5 MG/ML 4ML SYRINGE IV PRN (10:15)
[2022-01-01] MEDS ORDERED: MIDAZOLAM HCL 2MG/2ML 2ml VIAL (1mg/ml) IV PRN (10:15)
[2022-01-01] MEDS ORDERED: ePHEDrine SULFATE 50 MG/ML AMP IV PRN (10:15)
[2022-01-01] MEDS ORDERED: MORPHINE SULFATE 4 MG/ML SYR/VIAL IV PRN (10:15)
[2022-01-01] MEDS: SOD CHL 0.9%/ KCL 40MEQ 1,000 ML IV SCH ×2 (11:32→18:16)
[2022-01-01] MEDS: PANTOPRAZOLE 40 MG/10 ML VIAL INJ IV SCH ×2 (11:42→21:35)
[2022-01-01 13:06] VITALS: BP 164/120
[2022-01-01 17:17] VITALS: BP 152/107
[2022-01-01] MEDS ORDERED: HYDROcodone-ACET 10/325MG TAB PO PRN ×2 (17:45→18:00)
[2022-01-01] MEDS: METOPROLOL TARTRATE 50 MG TAB PO SCH (21:37)
[2022-01-01 22:00] VITALS: BP 148/107
[2022-01-02] MEDS: MORPHINE SULFATE INJ 2 MG/ml SYRG IV PRN ×5 (00:52→21:48)
[2022-01-02] MEDS: SOD CHL 0.9%/ KCL 40MEQ 1,000 ML IV SCH ×3 (01:32→22:10)
[2022-01-02 05:00] VITALS: BP 149/102
[2022-01-02] MEDS: SUCRALFATE 1 GM/10 ML ORAL SUSP PO SCH ×4 (06:10→21:47)
[2022-01-02] MEDS: LEVOTHYROXINE SODIUM 25 MCG TAB PO SCH (06:11)
[2022-01-02 09:00] VITALS: BP 145/107
[2022-01-02] MEDS: GABAPENTIN 300 MG CAP PO SCH (09:14)
[2022-01-02] MEDS: METOPROLOL TARTRATE 50 MG TAB PO SCH ×2 (09:14→21:47)
[2022-01-02] MEDS: PANTOPRAZOLE 40 MG/10 ML VIAL INJ IV SCH (09:15)
[2022-01-02 11:04] LABS: Basophils # (auto) 0 10 ^3/uL (0-0.2); Eosinophils # (auto) 0.1 10 ^3/uL (0-0.8); Monocytes # (auto) 0.8 10 ^3/uL (0-1.3)
[2022-01-02 11:06] LABS: Basophils % (auto) 0.6 % (0.0-2.0); Eosinophils % (auto) 0.7 % (0.0-7.0); Hematocrit 36.5 % (41.0-53.0); Hemoglobin 11.4 g/dL (13.5-17.5); Lymphocytes # (auto) 1.7 10 ^3/uL (0.4-5.4); Lymphocytes % (auto) 19.6 % (10.0-50.0); Mean Corpuscular Hemoglobin 25.5 pg (28.0-32.0); Mean Corpuscular Hgb Conc. 31.3 g/dL (32.0-36.0); Mean Corpuscular Volume 81.7 fL (80.0-100.0); Monocytes % (auto) 9.5 % (0.0-12.0); Neutrophils # (auto) 6.2 10 ^3/uL (1.6-8.6); Neutrophils % (auto) 69.6 % (37.0-80.0); Nucleated Red Blood Cells % 0.5 %; Red Blood Cells 4.47 10^6/uL (4.5-5.90); Red Cell Distribution Width 17.4 % (11.8-14.3); White Blood Cell 8.9 10^3/uL (4.4-10.8)
[2022-01-02 11:19] LABS: Calcium 7.2 mg/dL (8.5-10.1); Potassium 3.2 mmol/L (3.5-5.1)
[2022-01-02 11:21] LABS: BUN/Creatinine Ratio 9.1
[2022-01-02 13:00] VITALS: BP 138/101
[2022-01-02] MEDS ORDERED: POTASSIUM CHL 20 Meq TABLET PO ONE (13:15)
[2022-01-02 16:16] VITALS: BP 151/109
[2022-01-02] MEDS: PANTOPRAZOLE 40 MG TAB PO SCH (21:48)
[2022-01-02 21:59] VITALS: BP 144/103
[2022-01-03] MEDS: MORPHINE SULFATE INJ 2 MG/ml SYRG IV PRN ×2 (04:05→07:50)
[2022-01-03 04:37] VITALS: BP 146/90
[2022-01-03] MEDS: SUCRALFATE 1 GM/10 ML ORAL SUSP PO SCH ×2 (06:59→11:30)
[2022-01-03] MEDS: LEVOTHYROXINE SODIUM 25 MCG TAB PO SCH (07:00)
[2022-01-03] MEDS: GABAPENTIN 300 MG CAP PO SCH (08:58)
[2022-01-03] MEDS: METOPROLOL TARTRATE 50 MG TAB PO SCH (08:58)
[2022-01-03] MEDS: PANTOPRAZOLE 40 MG TAB PO SCH (08:59)
[2022-01-03 09:22] VITALS: BP 177/115
[2022-01-03] MEDS ORDERED: PANT40T PO (10:06)
[2022-01-03] MEDS ORDERED: SUCR1SUS5 PO (10:06)
[2022-01-03] MEDS: SOD CHL 0.9%/ KCL 40MEQ 1,000 ML IV SCH (10:45)
[2022-01-03 11:01] LABS: BUN/Creatinine Ratio 9.6; Calcium 6.8 mg/dL (8.5-10.1); Potassium 3.5 mmol/L (3.5-5.1)
[2022-01-03 12:03] VITALS: BP 150/98
[2022-01-03 12:17] VITALS: BP 144/106
== END 2022-01-03 13:20 | disposition home or self-care (01) | DRG 241 ==
LOC: EDBD 09:46 → ER 09:46 → OVERFLOW 16:22 → CENTRAL 23:22
PROVIDERS: ADMIT Registered Nurse; ATTEND Internal Medicine
PROC: 0DB68ZX Excision of Stomach, Via Natural or Artificial Opening Endoscopic, Diagnostic (ICD-10-PCS; principal; 2022-01-01 09:25)
DX: K29.71 Gastritis, unspecified, with bleeding (principal); K74.60 Unspecified cirrhosis of liver; E03.9 Hypothyroidism, unspecified; K29.81 Duodenitis with bleeding; E11.9 Type 2 diabetes mellitus without complications; F12.90 Cannabis use, unspecified, uncomplicated; K21.00 Gastro-esophageal reflux disease with esophagitis, without bleeding; N39.0 Urinary tract infection, site not specified; I10 Essential (primary) hypertension; J45.909 Unspecified asthma, uncomplicated; K44.9 Diaphragmatic hernia without obstruction or gangrene; M10.9 Gout, unspecified; R80.9 Proteinuria, unspecified; R82.4 Acetonuria; E78.5 Hyperlipidemia, unspecified; Z20.822 Contact with and (suspected) exposure to COVID-19; Z83.3 Family history of diabetes mellitus; Z82.49 Family history of ischemic heart disease and other diseases of the circulatory system
CPT/HCPCS: 36415; 71045; 74176; 76705; 80048; 80053; 80061; 80074; 80307; 81001; 82150; 82542; 83690; 84132; 84443; 85025; 85610; 93005; 96361; 96374; 96375; C9113; G0378; J1100; J2250; J2704; J3480; J7060

== ENCOUNTER 2023-08-10 16:46 | Emergency (ER) | payer MEDICAID ==
[~2023-08-10] VITALS: Ht 185.4 cm; Wt 80.9 kg
[~2023-08-10 16:46] MED LIST changes: -ALB2T; +ALBU2TAB47; -COLCPOW2 PO; -GABA-339 PO; -HYDR50TA15 PO; +HYDR50TA47 PO; -LEVE500T32 PO; +LEVE500T40 PO; +LEVO25TA2 PO; -LEVO25TA49 PO; +METO-281 PO; +PANT40T PO; +SUCR1SUS5 PO
[2023-08-10 17:52] VITALS: BP 130/94; PULSE 71; RESP 13; O2SAT 96
[2023-08-10 19:44] LABS: Chloride 107 mmol/L (98-107); Potassium 4.2 mmol/L (3.5-5.1); Sodium 142 mmol/L (136-145)
[2023-08-10 19:45] LABS: Anion Gap 10 (5-15); Calcium 9.7 mg/dL (8.7-10.4); Carbon Dioxide 25 mmol/L (20-30)
[2023-08-10 19:50] LABS: BUN/Creatinine Ratio 13.6 (10.0-20.0); Blood Urea Nitrogen 18 mg/dL (9-23); Glucose 84 mg/dL (74-106)
== END 2023-08-10 20:44 | disposition left against medical advice (07) ==
LOC: ER 16:46 → EDBD 16:46 → ER 20:28
DX: I10 Essential (primary) hypertension (principal); R03.0 Elevated blood-pressure reading, without diagnosis of hypertension; F12.10 Cannabis abuse, uncomplicated; J45.909 Unspecified asthma, uncomplicated; M10.9 Gout, unspecified; E78.5 Hyperlipidemia, unspecified; K21.9 Gastro-esophageal reflux disease without esophagitis
CPT/HCPCS: 36415; 80048; 83880; 84484; 85379